=== PATIENT | female | born 1935 | race Caucasian/White ===

== ENCOUNTER → 2016-06-15 | Outpatient (CLI) | payer MEDICARE, OTHER ==
--- NOTE | 2016-06-15 11:40 | MM ---
Reason for exam: history of breast cancer, mastectomy. Last mammogram was performed 6 months ago. History: Patient is postmenopausal, has history of ovarian cancer at age 77, and has history of breast cancer at age 65. Mastectomy of the left breast, July 07, 2010. Malignant left mammotome panel of the left breast, June 25, 2010. Excisional biopsy of the left breast, August 26, 1999. Malignant stereotactic core biopsy of the left breast, August 08, 1999. Lumpectomy of the left breast, 1999. Radiation therapy of the left breast, 1999. Cyst aspiration of the left breast. Cyst aspiration of the right breast. Took estrogen for 20 years beginning at age 43. Physical Findings: Nurse did not find any significant physical abnormalities on exam. MG 3D Diag Mammo W/Cad RT CC and MLO view(s) were taken of the right breast. Prior study comparison: December 13, 2015, right breast MG 3d diag mammo w/cad RT. June 13, 2015, right breast MG 3d diag mammo w/cad RT. There are scattered fibroglandular densities. Finding: There are stable grouped/clustered calcifications in the right breast. These results were verbally communicated with the patient and result sheet given to the patient on 06/15/16. ASSESSMENT: Probably benign, BI-RAD 3 RECOMMENDATION: Follow-up diagnostic mammogram of the right breast in 6 months.
== END | disposition home or self-care (01) ==
LOC: RADMAMWWP 10:51
PROVIDERS: ATTEND Internal Medicine Hematology & Oncology
DX: Z08 Encounter for follow-up examination after completed treatment for malignant neoplasm (principal); Z85.3 Personal history of malignant neoplasm of breast
CPT/HCPCS: G0206; G0279

== ENCOUNTER → 2016-08-19 | Outpatient (CLI) | payer MEDICARE, OTHER ==
--- NOTE | 2016-08-19 11:34 | XR ---
EXAMINATION TYPE: XR chest 2V DATE OF EXAM: 08/19/2016 11:24 AM COMPARISON: NONE HISTORY: Shortness of breath TECHNIQUE: Frontal and lateral views of the chest are obtained. FINDINGS: Scattered senescent parenchymal changes noted. Hyperinflation compatible with COPD. No evidence for infiltrate. No evidence for atelectasis. Heart size is stable. Mediastinal structures are stable and grossly unremarkable. No evidence for hilar prominence. Degenerative changes dorsal spine. IMPRESSION: 1. No evidence for acute pulmonary disease.
== END | disposition home or self-care (01) ==
LOC: RADXRMAIN 11:03
PROVIDERS: ATTEND Internal Medicine
DX: R05 Cough (principal)
CPT/HCPCS: 71020

== ENCOUNTER → 2016-09-01 | Outpatient (CLI) | payer MEDICARE, OTHER ==
[2016-09-01 12:06] LABS: Blood Urea Nitrogen 14 mg/dL (7-17); Non-African American GFR(MDRD) 57 (>60 ml/min/1.73 sqM)
--- NOTE | 2016-09-01 13:32 | CT ---
EXAMINATION TYPE: CT abdomen pelvis w con DATE OF EXAM: 09/01/2016 12:49 PM COMPARISON: 08/19/2015 and 02/05/2014 HISTORY: 80-year-old female follow up of ovarian/breast cancer TECHNIQUE: Contiguous axial scanning of the abdomen and pelvis following administration of 100 ml Omn ipaque 300 IV contrast. Delayed images through the kidneys and coronal/sagittal reconstructions perf ormed. CT DLP: 1012.8 mGycm Automated exposure control for dose reduction was used. FINDINGS: Heart is normal size without pericardial effusion. Some strandy atelectasis or scarring at the lung b ases without pleural effusion. No focal liver lesion. Portal venous system is patent. Mild prominence of the bile duct is unchanged measuring up to 1 cm likely on the basis of postcholecystectomy status. Adrenal glands and kidneys within normal limits. Spleen with a couple eggshell calcifications, one at the splenic hilum measuring 1.2 cm are unchanged. Pancreas mildly atrophic but otherwise unremarkabl e. Some prominent but nonenlarged retroperitoneal lymph nodes measure up to 5 mm and are stable. A more prominent 7 mm lymph node overlying the left psoas major, axial image 46 is unchanged from 2014. No mesenteric or retroperitoneal lymphadenopathy. No dilated small bowel, free fluid, or free air. Oral contrast has progressed to the rectum. No pericolonic inflammatory change. Bladder is partially distended. Uterus and ovaries surgically absent. There is a small 1.2 cm area of soft tissue nodularity along the left lateral wall of the mid sigmoid colon, axial image 32 which is indeterminate and could possibly represent fold redundancy. Some meliton tional nodular thickening in the right adnexa measuring 1.7 cm that appears to be increased from prio r exams, axial image 69. Otherwise, no pelvic lymphadenopathy or abnormal fluid collection seen. Bones: Degenerative changes mid to lower lumbar spine. Severe hypertrophic facet arthropathy L3-L4 wi th grade 2 anterolisthesis. No osseous destructive process. 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 IMPRESSION: 1. STATUS POST HYSTERECTOMY AND BILATERAL SALPINGO-OOPHORECTOMY. 2. THERE ARE 2 AREAS OF NODULAR THICKENING, ONE ALONG THE LEFT LATERAL SURFACE OF THE MID SIGMOID AND ONE WITHIN THE RIGHT ADNEXA THAT APPEAR MORE PRONOUNCED FROM PRIOR EXAMS. SHORT INTERVAL FOLLOW-UP R ECOMMENDED TO EXCLUDE EARLY PERITONEAL/SEROSAL RECURRENCE. 3. 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 4. SOME SCATTERED BORDERLINE ENLARGED RETROPERITONEAL LYMPH NODES ARE STABLE BACK TO 2014 COMPATIBLE WITH A BENIGN ETIOLOGY.
== END | disposition home or self-care (01) ==
LOC: RADCTMAIN 11:26
PROVIDERS: ATTEND Internal Medicine Hematology & Oncology
DX: C56.9 Malignant neoplasm of unspecified ovary (principal); K63.89 Other specified diseases of intestine; I72.8 Aneurysm of other specified arteries; C50.112 Malignant neoplasm of central portion of left female breast; R59.0 Localized enlarged lymph nodes; Z90.710 Acquired absence of both cervix and uterus; Z90.722 Acquired absence of ovaries, bilateral; Z91.041 Radiographic dye allergy status
CPT/HCPCS: 82565; 84520; 74177; 36415; Q9967

== ENCOUNTER → 2016-11-02 | Outpatient (CLI) | payer MEDICARE, OTHER | END | disposition home or self-care (01) | LOC: RADUSWWP 12:09 | PROVIDERS: ATTEND Dermatology | DX: I83.12 Varicose veins of left lower extremity with inflammation (principal); I73.9 Peripheral vascular disease, unspecified | CPT/HCPCS: 93922 ==

== ENCOUNTER → 2016-12-24 | Outpatient (CLI) | payer MEDICARE, OTHER ==
--- NOTE | 2016-12-24 10:39 | MM ---
Reason for exam: additional evaluation requested from prior study. Last mammogram was performed 6 months ago. History: Patient is postmenopausal, has history of ovarian cancer at age 77, and has history of breast cancer at age 65. Mastectomy of the left breast, July 07, 2010. Malignant left mammotome panel of the left breast, June 25, 2010. Excisional biopsy of the left breast, August 26, 1999. Malignant stereotactic core biopsy of the left breast, August 08, 1999. Lumpectomy of the left breast, 1999. Radiation therapy of the left breast, 1999. Cyst aspiration of the left breast. Cyst aspiration of the right breast. Took estrogen for 20 years beginning at age 43. Physical Findings: Nurse did not find any significant physical abnormalities on exam. MG 3D Diag Mammo W/Cad RT CC, MLO, and ML view(s) were taken of the right breast. Prior study comparison: June 15, 2016, right breast MG 3d diag mammo w/cad RT. December 13, 2015, right breast MG 3d diag mammo w/cad RT. The breast tissue is heterogeneously dense. This may lower the sensitivity of mammography. There is no discrete abnormality. No significant new findings when compared with previous films. These results were verbally communicated with the patient and result sheet given to the patient on 12/24/16. ASSESSMENT: Negative, BI-RAD 1 RECOMMENDATION: Follow-up diagnostic mammogram of the right breast in 1 year. Manage patient on a clinical basis.
== END | disposition home or self-care (01) ==
LOC: RADMAMWWP 09:39
PROVIDERS: ATTEND Internal Medicine Hematology & Oncology
DX: Z08 Encounter for follow-up examination after completed treatment for malignant neoplasm (principal); Z85.3 Personal history of malignant neoplasm of breast
CPT/HCPCS: G0206; G0279

== ENCOUNTER → 2017-09-06 | Outpatient (CLI) | payer MEDICARE, OTHER ==
--- NOTE | 2017-09-06 15:56 | CT ---
EXAMINATION TYPE: CT abdomen pelvis w con DATE OF EXAM: 09/06/2017 HISTORY: Pelvic pain with history of ovarian cancer CT DLP: 1050.6mGycm Automated Exposure Control for Dose Reduction was Utilized. CONTRAST: CT scan of the abdomen and pelvis is performed with IV Contrast, patient injected with 100 mL of Isov ue 300. COMPARISON: 09/01/2016 FINDINGS: LUNG BASES: Increase in degree of subpleural reticulation in comparison to the prior exam within the lungs. No new focal nodule seen within the lung bases. Left sided mastectomy has been performed. LIVER/GB: Minimal intrahepatic biliary ductal dilatation and stable extrahepatic biliary ductal dilat ation are similar to the prior and likely postsurgical as there is postcholecystectomy. No focal live r lesion is seen. PANCREAS: No significant abnormality is seen. No ductal dilatation. 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 Dystrophic calcification of the splenic parenchyma is again noted. ADRENALS: No significant abnormality is seen. KIDNEYS: The kidneys enhance and excrete symmetrically without hydronephrosis. BOWEL: As described in the uterus/adnexa section there is a focal area of thickening of the sigmoid c olon on series 3 image 69 with surrounding adenopathy concerning for neoplasm. Contrast has not progr essed throughout the colon, somewhat limiting evaluation. Moderate amount of colonic stool is also se en also limiting evaluation. No small bowel dilatation is noted or large bowel dilatation. UTERUS/ADNEXA: Appearing to be within the mesial rectal fascia there is a complex heterogenous, predo minantly isoattenuated to adjacent musculature mass measuring 3.4 x 3.0 cm abutting the distal sigmoi d colon. This is concerning for a peritoneal implant given the patient's history of ovarian cancer or potentially exophytic sigmoid colonic mass. Additionally within the sigmoid colon there is an area o f focal wall thickening with surrounding adenopathy. This is concerning for underlying mass on series 3 image 69 with adenopathy on series 3 image 65 measuring 1.2 cm and 6 mm. Right adnexal mass may represent a residual right ovary is present. Correlate with surgical history. This is seen in series 3 image 77 abutting loops of small bowel measuring 1.9 x 2.2 cm. LYMPH NODES: Adenopathy as described in the uterus/adnexa section within the pelvis. No abdominal carlos nopathy. Nonenlarged periaortic lymph nodes are noted OSSEOUS STRUCTURES: There is a grade 2 anterolisthesis of L4 on L5. Multilevel moderate degenerative changes of the thoracic spine as visualized are noted and of the lumbosacral spine. IMPRESSION: 1. Multifocal findings within the distal and mid sigmoid colon with surrounding adenopathy. Findings are concerning for potential multifocal colon carcinoma or peritoneal/serosal implants and recurrence of the patient's known ovarian carcinoma. Initially colonoscopy is recommended with further workup c onsidering results. 2. Right adnexal mass that may represent the medial ovary. Correlate with surgical history. If right ovary is surgically absent additional area mesenteric/peritoneal implant would be considered.
== END | disposition home or self-care (01) ==
LOC: RADCTMAIN 08-31 11:49
PROVIDERS: ATTEND Internal Medicine Hematology & Oncology
DX: C56.9 Malignant neoplasm of unspecified ovary (principal); R59.0 Localized enlarged lymph nodes; N85.8 Other specified noninflammatory disorders of uterus; Z91.048 Other nonmedicinal substance allergy status
CPT/HCPCS: 82565; 84520; 74177; 36415; Q9967

== ENCOUNTER → 2017-12-27 | Outpatient (CLI) | payer MEDICARE, OTHER ==
--- NOTE | 2017-12-27 10:59 | MM ---
Reason for exam: additional evaluation requested from prior study. Last mammogram was performed 1 year ago. History: Patient is postmenopausal, has history of ovarian cancer at age 77, and has history of breast cancer at age 65. Mastectomy of the left breast, July 07, 2010. Malignant left mammotome panel of the left breast, June 25, 2010. Excisional biopsy of the left breast, August 26, 1999. Malignant stereotactic core biopsy of the left breast, August 08, 1999. Lumpectomy of the left breast, 1999. Radiation therapy of the left breast, 1999. Cyst aspiration of the left breast. Cyst aspiration of the right breast. Took estrogen for 20 years beginning at age 43. Physical Findings: Nurse did not find any significant physical abnormalities on exam. MG 3D Diag Mammo W/Cad RT CC and MLO view(s) were taken of the right breast. Prior study comparison: December 24, 2016, right breast MG 3d diag mammo w/cad RT. June 15, 2016, right breast MG 3d diag mammo w/cad RT. The breast tissue is heterogeneously dense. This may lower the sensitivity of mammography. There is no discrete abnormality. No significant new findings when compared with previous films. These results were verbally communicated with the patient and result sheet given to the patient on 12/27/17. ASSESSMENT: Negative, BI-RAD 1 RECOMMENDATION: Routine screening mammogram of the right breast in 1 year.
== END | disposition home or self-care (01) ==
LOC: RADMAMWWP 09:00
PROVIDERS: ATTEND Internal Medicine Hematology & Oncology
DX: R92.8 Other abnormal and inconclusive findings on diagnostic imaging of breast (principal); Z85.3 Personal history of malignant neoplasm of breast
CPT/HCPCS: 77065; G0279; 77061

== ENCOUNTER → 2018-01-01 | Outpatient (CLI) | payer MEDICARE, OTHER ==
--- NOTE | 2018-01-03 18:22 | PE ---
EXAMINATION TYPE: PET CT fusion skull to thigh DATE OF EXAM: 01/01/2018 CLINICAL HISTORY: 82-year-old female with history of ovarian cancer diagnosed in 2013. Treated with s urgery and chemotherapy in 2013. Also, remote history of breast cancer in 2001. TECHNIQUE: Following the intravenous administration of 12.14 mCi of F-18 FDG, whole body images are performed from the skull base to the midthigh. Images are reviewed on the computer in the coronal, axial, and sagittal planes. Reconstructed rotating images are created on independent workstation and reviewed on the computer. A localization and attenuation correction CT is performed in conjunction with the PET scan. Glucose level: 100 mg/dL CTDI: 4.57 mGy DLP: 406.7 mGy-cm COMPARISON: CT abdomen pelvis 09/16/2017 FINDINGS: PET: Physiologic FDG uptake within the neck. Physiologic FDG uptake within the chest. Small focal area of ozkh-an-vpigjdzb uptake at the mid hepatic dome, and axis to be 3.[address] co rrelate. Second area of focal borderline intense uptake inferior left liver lobe, max SUV 5.5. No alana ar CT correlate. - Pericolonic nodularity along the lower descending colon, axial image 177, moderate uptake, max SUV 4.3. - Small left common iliac chain lymph node measuring 8 mm, axial image 25 with mild uptake, max SUV 2 .3. - Left paramedian upper pelvic peritoneal deposit, axial image 191 measures 1.9 cm versus 1.4 cm prev iously and shows very intense uptake, maximal SUV 11.3. - Adjacent large left external iliac chain soft tissue measures 2.9 cm along the proximal sigmoid, ma x SUV 15.0. - Small anterior midline upper pelvic peritoneal deposit measures 1.7 cm versus 9 mm, previously with moderate uptake, max SUV 4.6. - A small right paramedian rectus sheath abdominal wall implant measures 1 cm with borderline moderat e uptake, max SUV 3.5. - A couple additional small serosal peritoneal implants measuring up to 1 cm are present more inferio rly in the pelvis is, axial image 199 and 200 with increased uptake. - Right adnexal soft tissue measures 2.6 cm versus 2.2 cm, previously with very intense uptake, max S UV 18.8. - Posterior left pelvic soft tissue measures 2.5 cm versus 3.4 cm, previously with intense uptake, ma x SUV 9.5. ATTENUATION CORRECTION CT: No cervical lymphadenopathy. Visualized paranasal sinuses are clear. Patient status post left mastectomy. Heart borderline enlarged without pericardial effusion. No thora cic lymphadenopathy by CT size criteria. Scattered areas of atelectasis or scarring in the lungs with a mild centrilobular emphysema. No consolidation or pleural effusion. Cholecystectomy clips. No dilated small bowel, free fluid, or free air. Moderate stool burden. Possib le small peripherally calcified splenic artery aneurysms measuring up to 1.2 cm. No abnormal fluid collection in the pelvis. Bladder collapsed. Uterus surgically absent. Bones: Degenerative changes lower lumbar spine. Endplate spondylosis mid to lower thoracic spine. No osseous destructive process. Grade 2 anterolisthesis at L4-L5. IMPRESSION: 1. Findings compatible with disease recurrence with peritoneal and serosal deposits within the lower abdomen and pelvis, small right paramedian rectus sheath abdominal wall implant, and 2 foci of metast atic disease to the liver versus hepatic serosal implants. Largest implant is on the left side of the pelvis along the mid sigmoid. Many of the implants have increased in size from 09/06/2017. 2. Status post hysterectomy and bilateral salpingo-oophorectomy as well as status post left mastectom y.
== END | disposition home or self-care (01) ==
LOC: RADPETMAIN 07:22
PROVIDERS: ATTEND Internal Medicine Hematology & Oncology
DX: R93.5 Abnormal findings on diagnostic imaging of other abdominal regions, including retroperitoneum (principal); C50.112 Malignant neoplasm of central portion of left female breast; Z90.12 Acquired absence of left breast and nipple; Z90.710 Acquired absence of both cervix and uterus
CPT/HCPCS: 78815; A9552

== ENCOUNTER 2018-01-04 09:18 | Day surgery (SDC) | payer MEDICARE, OTHER ==
[2017-12-31 12:40] VITALS: BMI 27.6
[~2018-01-04 09:18] MED LIST: DEXAMETHASONE SOD PHOSPHATE 10 MG/ML 1 ML VIAL IV ONE; LACTATED RINGERS 1,000 ML IV SCH; LIDOCAINE 1% 20 ML VIAL (10MG/ML) FOR IV START INTRADERMA PRN; ONDANSETRON 4 MG/2 ML VIAL IVP ONE; Pre Op ABX Message 1 EACH MISC MISCELLANE ONE; fentaNYL (PF) 50 MCG/ML 2 ML AMP IVP PRN
--- NOTE | 2018-01-04 09:42 | P.GSHP ---
History of Present Illness H&P Date: 01/04/18 Chief Complaint: Ovarian cancer 82-year-old female known to our service. Recently diagnosed with recurrent ovarian cancer. The patient has evidence of colonic involvement with partial colonic obstruction related to the serosal implants. Patient here today for Port-A-Cath placement. Patient also has a history of breast cancer. Past Medical History Past Medical History: Cancer, GERD/Reflux, Hypertension, Myocardial Infarction ( OR) Additional Past Medical History / Comment(s): MENIERE'S DISEASE. OVARAIN CANCER Last Myocardial Infarction Date:: UNKNOWN History of Any Multi-Drug Resistant Organisms: None Reported Past Surgical History: Breast Surgery, Hysterectomy Additional Past Surgical History / Comment(s): LUMPECTOMY LT BREAST. PORT PLACED. MASECTOMY LT BREAST. OVARAIN CANCER SX. COLONOSCOPY Past Anesthesia/Blood Transfusion Reactions: No Reported Reaction Smoking Status: Never smoker - Past Family History Mother Family Medical History: No Reported History Medications and Allergies Home Medications Medication Instructions Recorded Confirmed Type Aspirin [Adult Low Dose Aspirin EC] 81 mg PO DAILY 12/31/17 12/31/17 History Calcium Carb-Mag Carb-Folic 1 each PO AC-BID 12/31/17 12/31/17 History [Magnebind 400 Rx] Calcium Carbonate [Calcium] 600 mg PO DAILY 12/31/17 12/31/17 History Losartan [Cozaar] 50 mg PO DAILY 12/31/17 12/31/17 History Meclizine [Antivert] 25 mg PO BID 12/31/17 12/31/17 History Metoprolol Succinate [Toprol XL] 25 mg PO TID 12/31/17 12/31/17 History Montelukast [Singulair] 10 mg PO DAILY 12/31/17 12/31/17 History Pantoprazole Sodium [Protonix] 40 mg PO DAILY 12/31/17 12/31/17 History Venlafaxine HCl ER [Effexor XR] 75 mg PO DAILY 12/31/17 12/31/17 History amLODIPine [Norvasc] 5 mg PO DAILY 12/31/17 12/31/17 History clonazePAM [Clonazepam] 0.5 mg PO HS 12/31/17 12/31/17 History Allergies Allergy/AdvReac Type Severity Reaction Status Date / Time codeine Allergy Vomiting Verified 12/31/17 12:31 iodine Allergy Rash/Hives Verified 12/31/17 12:31 Sulfa (Sulfonamide Allergy Rash/Hives Verified 12/31/17 12:31 Antibiotics) Surgical - Exam Physical exam: General: Well-developed, well-nourished HEENT: Normocephalic, sclerae nonicteric Abdomen: Nontender, nondistended Extremities: No edema Neuro: Alert and oriented Assessment and Plan (1) Ovarian cancer Narrative/Plan: Will proceed with Port-A-Cath placement today. Risks of bleeding, infection, DVT , pneumothorax, catheter malfunction, anesthesia related complications were discussed. The patient understands and wishes to proceed. Current Visit: Yes Status: Acute Code(s): C56.9 - MALIGNANT NEOPLASM OF UNSPECIFIED OVARY SNOMED Code(s): 321433648
[2018-01-04 09:48] VITALS: RESP 16; TEMP 97.5
[2018-01-04] MEDS ORDERED: HEPARIN SODIUM,PORCINE 5,000 UNIT/ML 1 ML VIAL SQ ONE (12:03)
[2018-01-04] MEDS ORDERED: ceFAZolin IN SWFI 2 GM/20 ML SYRINGE IVP ONE (12:15)
[2018-01-04] MEDS ORDERED: fentaNYL (PF) 50 MCG/ML 2 ML AMP ONE (12:26)
[2018-01-04] MEDS ORDERED: PROPOFOL 10 MG/ML 20 ML VIAL IV ONE (12:26)
[2018-01-04] MEDS ORDERED: LIDOCAINE 1% INJ 10MG/ML (20 ML MDV) SQ ONE ×2 (12:46→13:03)
[2018-01-04] MEDS ORDERED: HEPARIN SODIUM,PORCINE 100 UNIT/ML 5 ML VIAL IV ONE (12:47)
[2018-01-04] MEDS ORDERED: NALOXONE 0.4 MG/ML 1 ML VIAL IV PRN (13:08)
--- NOTE | 2018-01-04 13:09 | P.OP ---
Date of Procedure: 01/04/18 Procedure(s) Performed: PREOPERATIVE DIAGNOSIS: Ovarian cancer POSTOPERATIVE DIAGNOSIS: Same PROCEDURE: Port-A-Cath placement SURGEON: Ludmila EBL: Minimal ANESTHESIA: Sedation COMPLICATIONS: None OPERATIVE PROCEDURE: Patient was brought and placed on the operative table in the supine position. The patient was sedated per anesthesia that time. The chest and neck were prepped and draped in usual sterile fashion. The ultrasound probe was used to identify the location of the right internal jugular vein. The skin was localized with lidocaine. The Seldinger needle was advanced into the IJ under ultrasound guidance. The wire was advanced through the needle under fluoroscopic guidance into the superior vena cava. A port pocket was created in the right infraclavicular location. The catheter was tunneled from the wire entrance site to the port pocket. The port was then connected to the catheter. The dilator introducer was threaded over the guidewire. The guidewire and dilator were then removed. The catheter was advanced through the introducer and introducer was then removed. The tip was seen to be in the right atrial junction. Port was flushed with both saline and a Hep-Lock solution. There was good flow both in and out of the port. The port was sutured in underlying tissues using 3-0 silk sutures. The subcutaneous tissues were reapproximated using 3-0 Vicryl sutures and the skin at both locations using 4-0 Monocryl sutures. Steri-Strips and sterile dressings then applied. DISPOSITION: Stable to recovery room
--- NOTE | 2018-01-04 13:35 | XR ---
EXAMINATION TYPE: XR chest 1V confirm line [facility] DATE OF EXAM: 01/04/2018 COMPARISON: None INDICATION: Line placement TECHNIQUE: Single frontal view of the chest is obtained. FINDINGS: The heart size is normal. The pulmonary vasculature is normal. Minimal infiltrate may be partially silhouetting the left diaphragm. Catheter is been placed on the right with the tip in the distal superior vena cava region. No pneumot horax is evident. IMPRESSION: 1. No pneumothorax post line placement, tip is in the distal superior vena cava region. 2. Mild subsegmental atelectasis or infiltrate is at the left base.
--- NOTE | 2018-01-04 13:47 | FL ---
Fluoroscopy INDICATION: Pain, catheter placement FINDINGS: Fluoroscopy time: 3 seconds. Images obtained: 1. IMPRESSIONS: 1. Documentation of fluoroscopy.
[2018-01-04 14:06] VITALS: BP 147/69; PULSE 61
== END 2018-01-04 14:22 | disposition home or self-care (01) ==
LOC: OR 09:18
PROVIDERS: ATTEND Surgery
DX: C56.9 Malignant neoplasm of unspecified ovary (principal); K21.9 Gastro-esophageal reflux disease without esophagitis; I10 Essential (primary) hypertension; I25.2 Old myocardial infarction; H81.09 Meniere's disease, unspecified ear; Z88.5 Allergy status to narcotic agent; Z88.2 Allergy status to sulfonamides; Z91.048 Other nonmedicinal substance allergy status; Z79.82 Long term (current) use of aspirin; Z79.899 Other long term (current) drug therapy; Z85.3 Personal history of malignant neoplasm of breast; Z90.710 Acquired absence of both cervix and uterus; Z90.12 Acquired absence of left breast and nipple
CPT/HCPCS: 36561; 77001; C1788; J1644; J1642; J1100; J0690; J2405; J2001; J3010; J2704

== ENCOUNTER → 2018-01-18 | Outpatient (CLI) | payer MEDICARE, OTHER ==
--- NOTE | 2018-01-18 16:43 | XR ---
EXAMINATION TYPE: XR chest 2V DATE OF EXAM: 01/18/2018 COMPARISON: Prior chest x-ray 01/04/2018 HISTORY: Breast carcinoma TECHNIQUE: Frontal and lateral views of the chest are obtained. FINDINGS: Right-sided Port-A-Cath via the internal jugular approach is present with the distal tip o f the catheter overlying superior vena cava. There is no evident pneumothorax or pleural effusion. Pa tient is post left mastectomy. Mediastinal silhouette, pulmonary vascularity and leonardo are within norm al limits. No evident airspace disease. There is a spinal curvature, underlying degenerative disc lucie nges in the visualized spine. IMPRESSION: No acute cardiopulmonary process.
== END | disposition home or self-care (01) ==
LOC: RADXRMAIN 14:14
PROVIDERS: ATTEND Internal Medicine Hematology & Oncology
DX: C50.112 Malignant neoplasm of central portion of left female breast (principal); C56.9 Malignant neoplasm of unspecified ovary; E78.2 Mixed hyperlipidemia; I10 Essential (primary) hypertension
CPT/HCPCS: 71046

== ENCOUNTER 2018-03-01 10:53 | Day surgery (SDC) | payer MEDICARE, OTHER ==
[2018-02-21 15:02] VITALS: BMI 26.9
[~2018-03-01 10:53] MED LIST changes: -DEXAMETHASONE SOD PHOSPHATE 10 MG/ML 1 ML VIAL IV ONE; +FAMOTIDINE 20 MG/2 ML VIAL IV ONE; -LACTATED RINGERS 1,000 ML IV SCH; -LIDOCAINE 1% 20 ML VIAL (10MG/ML) FOR IV START INTRADERMA PRN; -ONDANSETRON 4 MG/2 ML VIAL IVP ONE; -Pre Op ABX Message 1 EACH MISC MISCELLANE ONE; +diphenhydrAMINE 50 MG/ML 1 ML VIAL IVP ONE; -fentaNYL (PF) 50 MCG/ML 2 ML AMP IVP PRN; +methylPREDNISolone SOD SUCCI 125 MG/2 ML VIAL IV ONE
[2018-03-01] MEDS ORDERED: FAMOTIDINE 20 MG/2 ML VIAL ONE (11:17)
[2018-03-01] MEDS ORDERED: methylPREDNISolone SOD SUCCI 125 MG/2 ML VIAL ONE (11:17)
[2018-03-01] MEDS ORDERED: diphenhydrAMINE 50 MG/ML 1 ML VIAL ONE (11:17)
[2018-03-01 11:47] VITALS: TEMP 97.8
[2018-03-01 13:06] VITALS: BP 132/76; PULSE 73; RESP 16
--- NOTE | 2018-03-01 16:04 | IR ---
Port-A-Cath gram HISTORY: Malfunctioning Port-A-Cath Port-A-Cath accessed by the radiology nurse. Gentle hand injection of contrast performed under real-t collin fluoroscopy. 276 images obtained. 0.4 minutes fluoroscopy time. Following the procedure catheter was flushed with heparinized saline. Patient remained in stable cond ition, is discharged without complication. The port is patent. Catheter shows no fracture. Contrast injection there is irregularity noted along the distal aspect of the catheter. Contrast spil ls into the superior vena cava at the level of the superior vena cava rather than within the right at rium. IMPRESSION: Fibrin sheath along the distal aspect of the catheter measuring approximately 5 to 6 cm. Catheter is patent. No evident leak.
== END 2018-03-01 13:07 | disposition home or self-care (01) ==
LOC: CATHCVL 10:53
PROVIDERS: ATTEND Radiology Diagnostic Radiology
DX: T82.514A Breakdown (mechanical) of infusion catheter, initial encounter (principal); Z88.5 Allergy status to narcotic agent; Z88.2 Allergy status to sulfonamides; Z91.09 Other allergy status, other than to drugs and biological substances
CPT/HCPCS: 36598; J1200; J2930

== ENCOUNTER → 2018-03-02 | Outpatient (CLI) | payer MEDICARE, OTHER ==
--- NOTE | 2018-03-02 12:42 | CT ---
EXAMINATION TYPE: CT ChestAbdPelvis w con DATE OF EXAM: 03/02/2018 COMPARISON: Prior CT 09/06/2017 HISTORY: Breast and Ovarian Cancer CT DLP: 1403 mGycm Automated exposure control for dose reduction was used. CONTRAST: CT scan of the chest, abdomen and pelvis is performed with Oral Contrast and with IV Contrast, patien t injected with 100 ml mL of Isovue 300. FINDINGS: LUNGS: The lungs are stable, there is no concerning parenchymal mass or nodule identified. There is no pleural effusion or pneumothorax seen. The tracheobronchial tree is patent. MEDIASTINUM: There are no greater than 1 cm hilar or mediastinal lymph nodes. No pericardial effusi on is seen. AORTA: No significant abnormality is seen. OTHER: Patient is post left mastectomy. Port is present in the right pectoral region, distal tip the catheter courses to the level of the cavoatrial junction. LIVER/GB: Patient is post cholecystectomy, there are dilated intra and extrahepatic biliary ducts lik beto due to postcholecystectomy change. PANCREAS: No significant abnormality is seen. SPLEEN: Stable. ADRENALS: No significant abnormality is seen. KIDNEYS: No significant abnormality is seen. REPRODUCTIVE ORGANS: No gross abnormality seen. BOWEL: No significant abnormality is seen. FREE AIR: No Free Air visible. ASCITES: None seen. RETROPERITONEAL ADENOPATHY: No retroperitoneal adenopathy is seen. LYMPH NODES: Mesenteric nodes within the pelvis have grown slightly in the interval, towards the left lesion measures 17 x 19 mm where on prior measured approximately 16 x 14 mm. Small lesion towards th e midline measures approximately 18 x 9 mm and measured on prior approximately 11 x 8 mm. Soft tissue lesion associated with the sigmoid colon is again seen and may be adherent to the serosal surface. A t the level of the left hemipelvis adjacent to the rectum soft tissue mass measures 2.4 x 2.3 cm and on prior measured approximately 3 x 3.4 cm. Lesion at the surgical bed just posterior to the bladder to the right of midline measures approximately 2.9 x 1.8 cm where prior measurement approximately 1.9 x 2.2 cm. URINARY BLADDER: No significant abnormality is seen. OSSEOUS STRUCTURES: Stable. IMPRESSION: Findings suggest a mixed treatment response.
== END | disposition home or self-care (01) ==
LOC: RADCTMAIN 09:29
PROVIDERS: ATTEND Internal Medicine Hematology & Oncology
DX: Z03.89 Encounter for observation for other suspected diseases and conditions ruled out (principal); C50.112 Malignant neoplasm of central portion of left female breast; C56.9 Malignant neoplasm of unspecified ovary
CPT/HCPCS: 71260; 74177; Q9967

== ENCOUNTER → 2018-04-11 | Outpatient (CLI) | payer MEDICARE, OTHER ==
--- NOTE | 2018-04-11 16:18 | XR ---
EXAMINATION TYPE: XR chest 2V DATE OF EXAM: 04/11/2018 COMPARISON: 01/18/2018 INDICATION: Short of breath TECHNIQUE: Frontal and lateral views of the chest are obtained. FINDINGS: The heart size is normal. The pulmonary vasculature is normal. The lungs are clear. Port is present on the right with the tip in the distal superior vena cava gunnar on. Note is made of some degenerative disc changes through the thoracic spine. IMPRESSION: 1. No acute pulmonary process.
== END | disposition home or self-care (01) ==
LOC: RADXRMAIN 14:27
PROVIDERS: ATTEND Internal Medicine Interventional Cardiology
DX: R06.09 Other forms of dyspnea (principal)
CPT/HCPCS: 71046

== ENCOUNTER → 2018-06-16 | Outpatient (CLI) | payer MEDICARE, OTHER ==
--- NOTE | 2018-06-16 13:58 | CT ---
EXAMINATION TYPE: CT abdomen pelvis w con DATE OF EXAM: 06/16/2018 HISTORY: Follow up ovarian cancer. History of left breast cancer with mastectomy. CT DLP: 643.5mGycm Automated Exposure Control for Dose Reduction was Utilized. CONTRAST: CT scan of the abdomen and pelvis is performed with IV Contrast, patient injected with 60 mL of Isovu e 300. COMPARISON: 03/02/2018 FINDINGS: LUNG BASES: Peripheral predominant reticular opacity representing early fibrotic change. No honeycomb ing. LIVER/GB: Minimal intrahepatic biliary ductal dilatation is seen. Patient is status post cholecystect meme. No new hepatic lesions are identified or subserosal implants. No liver parenchymal invasion is s een. PANCREAS: No significant abnormality is seen. 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 ADRENALS: No significant abnormality is seen. KIDNEYS: No significant abnormality is seen. BOWEL: Moderate amount retained colonic stool is seen. No dilated large or small bowel. Appendix is w ithin normal limits. UTERUS/ADNEXA: Surgically absent LYMPH NODES: Left lower quadrant lymph nodes currently measure 1.2 x 1.5 and 1.1 x 0.9 cm as previous ly measured 1.6 x 1.5 cm and 8 mm, overall similar in measurement given differences in slice selectio n. The left pelvic wall adenopathy intimately associated with the sigmoid colon measures 1 cm in grea test thickness, better defined on the prior as phase of contrast was more optimal on this exam. Overa ll this mass appears slightly smaller. Smaller mesenteric lymph node on image 67 currently measures 1 .1 cm and previously measured 1.7 cm, improved. Just posterior to the urinary bladder left ureterovesicular junction the surgical bed mass measures 1 .8 x 1.8 cm and previously measured 2.2 x 2.2 cm. Other scattered smaller lymph nodes have slightly improved. OSSEOUS STRUCTURES: Again stable grade I anterolisthesis of L4 on L5 with rudimentary disc at L5-S1 a nd mild multilevel degenerative changes. IMPRESSION: Slight improvement in the sigmoid colon serosal and/or peritoneal metastatic implant size and slight improvement overall in the pelvic adenopathy in comparison to exam of 03/01/2018. No new solid visceral metastasis.
== END | disposition home or self-care (01) ==
LOC: RADPROMAIN 10:42
PROVIDERS: ATTEND Internal Medicine Hematology & Oncology
DX: C56.9 Malignant neoplasm of unspecified ovary (principal); Z91.048 Other nonmedicinal substance allergy status
CPT/HCPCS: 82565; 84520; 74177; J1642; Q9967

== ENCOUNTER → 2018-09-27 | Outpatient (CLI) | payer MEDICARE, OTHER ==
--- NOTE | 2018-09-28 09:09 | CT ---
EXAMINATION TYPE: CT abdomen pelvis w con DATE OF EXAM: 09/27/2018 COMPARISON: 06/16/2018 INDICATION: Ovarian CA DLP: 667.8 mGycm, Automated exposure control for dose reduction was used. CONTRAST: 100 mL of Isovue 300. Study performed with Oral Contrast TECHNIQUE: Axial images were obtained from above the diaphragm to the pubic rami in the axial plane a t 5 mm thick sections. Reconstructed images are reviewed on the computer in the coronal plane. FINDINGS: Limited CT sections are obtained the lung bases. The lung bases are clear. There is a left breast p rosthesis. CT ABDOMEN: Liver: Normal Spleen: Normal Pancreas: Somewhat atrophic Adrenal glands: The adrenal glands are normal. Gallbladder: Urgently absent Kidneys: No masses are evident. No hydronephrosis is present. No cysts are present. Delayed images were obtained through the kidneys, which remain unremarkable. Aorta: No aneurysmal dilatation or fusiform prominence. Inferior vena cava: Normal. CT PELVIS: Loops of bowel within the abdomen and pelvis are normal. There are loops of bowel which are incom pletely distended or lack oral contrast limiting their evaluation. Appendix: Normal as visualized. Urinary bladder: Normal. Genitourinary structures: Uterus is absent. Ovaries are not evident. No suspicious fluid collections are evident. Old mesentery: There are couple of rounded densities within the mesentery which may communicate. Seri es 3 image 60. There is a transverse dimension of 1.2 cm and could be a mesenteric lymph node iliac c sukh lymph node measuring 1.1 cm may be present, series 3 image 60. This is compared to the previous examination. The iliac chain lymph node previously measured 1.0 cm. The bilobed structure previously measured 1.3 and 0.9 cm in transverse dimension. The larger area has diminished 0.8 cm smaller area has increased to 1.2 cm. Additional area within the posterior pelvic mesentery measures 1.6 cm. This is increased in size from comparison. A 0.8 cm bilobed structure is in the anterior pelvis is stable in size. Osseous structures: No suspicious lytic or sclerotic lesions. IMPRESSIONS: 1. Several mesenteric nodular densities and left iliac chain density suspicious for mesenteric iliac chain lymphadenopathy. The majority of these are stable in size. One has diminished from 1.3 cm to 0 .8 cm, series 3 image 60. Others have increased from 0.8 cm to 1.0 cm, series 3 image 60, or 0.8 cm t o 1.6 cm, series 3 image 65.
== END | disposition home or self-care (01) ==
LOC: RADCTMAIN 16:27
PROVIDERS: ATTEND Internal Medicine Hematology & Oncology
DX: C56.9 Malignant neoplasm of unspecified ovary (principal); I89.8 Other specified noninfective disorders of lymphatic vessels and lymph nodes
CPT/HCPCS: 74177; Q9967

== ENCOUNTER → 2019-01-18 | Outpatient (CLI) | payer MEDICARE, OTHER ==
--- NOTE | 2019-01-18 17:23 | CT ---
EXAMINATION TYPE: CT abdomen pelvis w con DATE OF EXAM: 01/18/2019 HISTORY: Patient had ovarian cancer and in for follow up. CT DLP: 647mGycm Automated Exposure Control for Dose Reduction was Utilized. CONTRAST: CT scan of the abdomen and pelvis is performed with IV Contrast, patient injected with 80 mL of Isovu e M300. COMPARISON: CT abdomen and pelvis September 27, 2018 and older CTs FINDINGS: LUNG BASES: Anterolateral left basilar linear scarring is redemonstrated. LIVER/GB: Cholecystectomy clips are again seen. PANCREAS: Mild generalized atrophy redemonstrated. SPLEEN: No significant abnormality is seen. ADRENALS: No significant abnormality is seen. KIDNEYS: No significant abnormality is seen. BOWEL: Oral contrast reaches the level of the left colon. There is fecal prominence in the transverse and left colon. There is no suspicious small or large bowel dilatation. UTERUS/ADNEXA: Uterus is surgically absent. There is enlarging right pelvic lesion measuring 2.0 x 1. 8 cm axial image 67. There is an enlarging central pelvic 2.2 x 1.8 cm lesion axial image 63. There i s enlarging anterior mesenteric lesion measuring 2.4 x 0.9 cm axial image 59. There is enlarging left mesenteric lesion axial image 59. Is new suspicious subcentimeter soft tissue focus right retroperit oneum adjacent to iliopsoas muscle axial image 50. There is no enlarging left pelvic peritoneal 2.9 x 2.0 cm positive axial image 69. LYMPH NODES: See uterus/adnexa section above. OSSEOUS STRUCTURES: Demineralization is present. Transitional-type vertebra at the lumbosacral juncti on. There is persistent spondylolisthesis sagittal image 55. Facet arthropathy lower lumbar levels. OTHER: No significant additional abnormality is seen. IMPRESSION: Progression of metastatic disease with enlarging and new lesions identified as detailed a sherif predominantly involving the lower abdomen and pelvis.
== END | disposition home or self-care (01) ==
LOC: RADPROMAIN 13:22
PROVIDERS: ATTEND Internal Medicine Hematology & Oncology
DX: Z03.89 Encounter for observation for other suspected diseases and conditions ruled out (principal); C56.9 Malignant neoplasm of unspecified ovary; N94.9 Unspecified condition associated with female genital organs and menstrual cycle; Z91.041 Radiographic dye allergy status
CPT/HCPCS: 82565; 84520; 74177; J1642; Q9967

== ENCOUNTER → 2019-01-26 | Outpatient (CLI) | payer MEDICARE, OTHER ==
--- NOTE | 2019-01-27 09:48 | MM ---
Reason for exam: additional evaluation requested from prior study. Last mammogram was performed 1 year and 1 month ago. History: Patient is postmenopausal, has history of ovarian cancer at age 77, and has history of breast cancer at age 65. Mastectomy of the left breast, July 07, 2010. Malignant left mammotome panel of the left breast, June 25, 2010. Excisional biopsy of the left breast, August 26, 1999. Malignant stereotactic core biopsy of the left breast, August 08, 1999. Lumpectomy of the left breast, 1999. Radiation therapy of the left breast, 1999. Cyst aspiration of the left breast. Cyst aspiration of the right breast. Took estrogen for 20 years beginning at age 43. Taking antineoplastic for 1 year beginning at age 82. Physical Findings: Nurse did not find any significant physical abnormalities on exam. MG 3D Diag Mammo W/Cad RT CC and MLO view(s) were taken of the right breast. Prior study comparison: December 27, 2017, right breast MG 3d diag mammo w/cad RT. December 24, 2016, right breast MG 3d diag mammo w/cad RT. The breast tissue is heterogeneously dense. This may lower the sensitivity of mammography. Benign appearing calcifications in the right breast. No suspicious abnormality. Right nipple inversion is chronic. These results were verbally communicated with the patient and result sheet given to the patient on 01/26/19. ASSESSMENT: Benign, BI-RAD 2 RECOMMENDATION: Routine screening mammogram of the right breast in 1 year.
== END | disposition home or self-care (01) ==
LOC: RADMAMWWP 15:13
PROVIDERS: ATTEND Internal Medicine Hematology & Oncology
DX: Z08 Encounter for follow-up examination after completed treatment for malignant neoplasm (principal); Z85.3 Personal history of malignant neoplasm of breast; Z90.12 Acquired absence of left breast and nipple
CPT/HCPCS: 77065; G0279; 77061

== ENCOUNTER → 2019-03-08 | Outpatient (CLI) | payer MEDICARE, OTHER ==
--- NOTE | 2019-03-10 12:09 | US ---
EXAMINATION TYPE: US venous doppler duplex LE DATE OF EXAM: 03/08/2019 4:44 PM COMPARISON: NONE CLINICAL HISTORY: M79.662,M79.661,R22.42,R22.41 PAIN SWELLING LOWER LIMB. Pt states leg pain and swel ling, on chemo for ovarian CA SIDE PERFORMED: Bilateral TECHNIQUE: The lower extremity deep venous system is examined utilizing real time linear array sonog lynda with graded compression, doppler sonography and color-flow sonography. VESSELS IMAGED: External Iliac Vein (EIV) Common Femoral Vein Deep Femoral Vein Greater Saphenous Vein * Femoral Vein Popliteal Vein Small Saphenous Vein * Proximal Calf Veins (* superficial vessels) Right Leg: Negative for DVT, Barrett's cyst right pop fossa= 5.8 x 1.8 x 3.7 cm Left Leg: Positive for DVT, beginning at CFV, Barrett's cyst left pop fossa= 5.8 x 2.5 x 4.0 cm Results called to Ella at Dr's office at time of exam IMPRESSION: 1. Left-sided DVT as discussed above. 2. Bilateral Barrett's cysts noted.
== END ==
LOC: RADUSWWP 16:23
PROVIDERS: ATTEND Internal Medicine Hematology & Oncology
DX: I82.412 Acute embolism and thrombosis of left femoral vein (principal); I82.432 Acute embolism and thrombosis of left popliteal vein; I82.492 Acute embolism and thrombosis of other specified deep vein of left lower extremity; M71.22 Synovial cyst of popliteal space [Baker], left knee; M71.21 Synovial cyst of popliteal space [Baker], right knee
CPT/HCPCS: 93970

== ENCOUNTER → 2019-06-02 | Outpatient (CLI) | payer MEDICARE, OTHER ==
--- NOTE | 2019-06-02 12:22 | CT ---
EXAMINATION TYPE: CT abdomen pelvis w con DATE OF EXAM: 06/02/2019 COMPARISON: 01/18/2019 HISTORY: Ovarian cancer CT DLP: 647.1 mGycm CONTRAST: CT scan of the abdomen and pelvis is performed with Oral Contrast and with IV Contrast, patient injec yasmine with 80 mL of Isovue 300. FINDINGS: LUNG BASES-: No visible nodule. No infiltrate. LIVER/GB: The gallbladder is surgically absent. No space occupying hepatic lesion. Biliary tree is of normal caliber. PANCREAS: No inflammation. No distinct mass. SPLEEN: No splenic enlargement. No lesion seen. ADRENALS: No nodule. No thickening. KIDNEYS/BLADDER: No hydronephrosis. No nephrolithiasis. No distinct renal mass. Urinary bladder g rossly unremarkable. BOWEL: Normal appendix. Normal bowel caliber. No inflammation. GENITAL ORGANS: Hysterectomy and oophorectomy changes. Central pelvic lesion is stable measuring 2.2 cm seen on image 66. Stable right hemipelvic lesion measuring 1.9 cm versus 1.8 cm. Nodule adjacent to the right iliopsoas is smaller in size and measures 3 mm versus 8 mm previously. Anterior mesenter ic nodularity is also stable at 2.5 x 0.9 cm versus 2.4 x 0.9 cm. Additional adjacent nodule measures 1.55 cm versus 1.6 cm. No new nodules seen. LYMPH NODES: No greater than 1cm abdominal or pelvic lymph nodes are appreciated. AORTA: No significant abnormality. OSSEOUS STRUCTURES: No significant abnormality is seen. OTHER: No significant additional abnormality is seen. IMPRESSION: 1. Stable lesions in noted within the small bowel mesentery and lower pelvic regions as discussed. No new nodules are identified.
== END | disposition home or self-care (01) ==
LOC: RADPROMAIN 10:02
PROVIDERS: ATTEND Internal Medicine Hematology & Oncology
DX: N94.89 Other specified conditions associated with female genital organs and menstrual cycle (principal); K63.9 Disease of intestine, unspecified; C56.9 Malignant neoplasm of unspecified ovary; Z88.3 Allergy status to other anti-infective agents; Z88.5 Allergy status to narcotic agent; Z88.2 Allergy status to sulfonamides
CPT/HCPCS: 82565; 84520; 74177; J1642; Q9967 ×2

== ENCOUNTER 2019-09-25 15:30 | Inpatient (IN) | payer MEDICARE, OTHER ==
--- NOTE | 2019-09-25 17:19 | ED ---
General Adult HPI - General Chief complaint: Shortness of Breath Stated complaint: SOB Time Seen by Provider: 09/25/19 15:44 Source: patient, RN notes reviewed Mode of arrival: wheelchair Limitations: no limitations - History of Present Illness Initial comments: 83 yo female with a past medical history of ovarian cancer last received chemo on September 11, Hypertension, [place], GERD presents for shortness of breath. Patient states this has been ongoing for about 3 days. Patient states that she does not have any chest pain with this. Patient does admit that exertion makes the shortness of breath worse. Patient is currently taking Xarelto as she does have history of DVT however has not had any problems when starting the blood thinner. Patient is a chemo patient with last chemotherapy being september 12. - Related Data Home Medications Medication Instructions Recorded Confirmed Aspirin [Adult Low Dose Aspirin EC] 81 mg PO DAILY 12/31/17 05/27/18 Calcium Carb-Mag Carb-Folic 400 mg PO AC-BID 12/31/17 05/27/18 [Magnebind 400 Rx] Calcium Carbonate [Calcium] 600 mg PO DAILY 12/31/17 05/27/18 Losartan [Cozaar] 50 mg PO DAILY 12/31/17 05/27/18 Meclizine [Antivert] 25 mg PO BID 12/31/17 05/27/18 Metoprolol Succinate [Toprol XL] 25 mg PO TID 12/31/17 05/27/18 Montelukast [Singulair] 10 mg PO DAILY 12/31/17 05/27/18 Pantoprazole Sodium [Protonix] 40 mg PO DAILY 12/31/17 05/27/18 Venlafaxine HCl ER [Effexor XR] 75 mg PO DAILY 12/31/17 05/27/18 amLODIPine [Norvasc] 5 mg PO DAILY 12/31/17 05/27/18 clonazePAM [Clonazepam] 0.5 mg PO HS 12/31/17 05/27/18 HYDROcodone/APAP 5-325MG [Hamer 1 tab PO Q4HR PRN 03/01/18 05/27/18 5-325] Niraparib Tosylate [Zejula] 200 mg PO DAILY 05/27/18 05/27/18 Prochlorperazine [Compazine] 10 mg PO BID 05/27/18 05/27/18 Allergies Allergy/AdvReac Type Severity Reaction Status Date / Time codeine Allergy Vomiting Verified 09/25/19 15:39 iodine Allergy Rash/Hives Verified 09/25/19 15:39 Sulfa (Sulfonamide Allergy Rash/Hives Verified 09/25/19 15:39 Antibiotics) Review of Systems ROS Statement: Those systems with pertinent positive or pertinent negative responses have been documented in the HPI. ROS Other: All systems not noted in ROS Statement are negative. Past Medical History Past Medical History: Cancer, GERD/Reflux, Hypertension, Myocardial Infarction ([place]) Additional Past Medical History / Comment(s): MENIERE'S DISEASE. OVARIAN CANCER, Port a cath rt chest wall currently receiving chemotherapy. current UTI [place] with CIPRO Last Myocardial Infarction Date:: UNKNOWN History of Any Multi-Drug Resistant Organisms: None Reported Past Surgical History: Breast Surgery, Hysterectomy Additional Past Surgical History / Comment(s): LUMPECTOMY LT BREAST. PORT PLACED RT CHEST. MASECTOMY LT BREAST. OVARIAN CANCER SX. COLONOSCOPY Past Anesthesia/Blood Transfusion Reactions: Motion Sickness Past Psychological History: Depression Smoking Status: Never smoker - Past Family History Mother Family Medical History: CVA/TIA General Exam Limitations: no limitations General appearance: alert, in no apparent distress Head exam: Present: atraumatic, normocephalic, normal inspection Eye exam: Present: normal appearance, PERRL, EOMI. Absent: scleral icterus, conjunctival injection, periorbital swelling ENT exam: Present: normal exam, mucous membranes moist Neck exam: Present: normal inspection, full ROM. Absent: tenderness, meningismus, lymphadenopathy Respiratory exam: Present: decreased breath sounds. Absent: respiratory distress, wheezes, rales, rhonchi, stridor Cardiovascular Exam: Present: regular rate, normal rhythm, normal heart sounds. Absent: systolic murmur, diastolic murmur, rubs, gallop, clicks GI/Abdominal exam: Present: soft, normal bowel sounds. Absent: distended, tenderness, guarding, rebound, rigid Course Vital Signs 09/25/19 15:35 Temperature 98.3 F Pulse Rate 77 Respiratory 18 Rate Blood Pressure 156/69 O2 Sat by Pulse 93 L Oximetry EKG Findings - EKG Comments: EKG Findings:: Normal sinus rhythm ventricular rate 89, NV interval 134, QTC 420 Medical Decision Making - Medical Decision Making HPI and physical exam as documented. Vitals are stable although patient is a 93% room air. EKG shows a normal sinus rhythm. No significant elevations noted. CBC CMP unremarkable. Troponin is within normal limits. However BNP is elevated 3600. His x-ray demonstrates pulmonary edema with small right pleural effusion consistent with acute heart failure. Patient does not have a history of this. Patient was started on Lasix and Nitropaste. Patient will be admitted for cardiology consultation. Dr. Sarabia will be consulted as well. This is patient's oncologist. - Lab Data Result diagrams: 09/25/19 18:45 09/25/19 18:45 Lab Results 09/25/19 09/25/19 09/25/19 Range/Units 18:45 18:45 18:45 WBC 7.1 (3.8-10.6) k/uL RBC 2.87 L (3.80-5.40) m/uL Hgb 9.1 L (11.4-16.0) gm/dL Hct 27.9 L (34.0-46.0) % MCV 97.2 (80.0-100.0) fL MCH 31.6 (25.0-35.0) pg MCHC 32.5 (31.0-37.0) g/dL RDW 17.5 H (11.5-15.5) % Plt Count 152 (150-450) k/uL Neutrophils % 66 % Lymphocytes % 18 % Monocytes % 11 % Eosinophils % 2 % Basophils % 1 % Neutrophils # 4.7 (1.3-7.7) k/uL Lymphocytes # 1.3 (1.0-4.8) k/uL Monocytes # 0.8 (0-1.0) k/uL Eosinophils # 0.1 (0-0.7) k/uL Basophils # 0.0 (0-0.2) k/uL Hypochromasia Slight Anisocytosis Slight Macrocytosis Slight PT 10.7 (9.0-12.0) sec INR 1.0 (<1.2) APTT 39.4 H (22.0-30.0) sec Sodium 136 L (137-145) mmol/L Potassium 4.7 (3.5-5.1) mmol/L Chloride 105 (98-107) mmol/L Carbon Dioxide 25 (22-30) mmol/L Anion Gap 6 mmol/L BUN 20 H (7-17) mg/dL Creatinine 1.14 H (0.52-1.04) mg/dL Est GFR (CKD-EPI)AfAm 51 (>60 ml/min/1.73 sqM) Est GFR (CKD-EPI)NonAf 44 (>60 ml/min/1.73 sqM) Glucose 112 H (74-99) mg/dL Plasma Lactic Acid Vikas (0.7-2.0) mmol/L Calcium 8.8 (8.4-10.2) mg/dL Magnesium (1.6-2.3) mg/dL Total Bilirubin 0.7 (0.2-1.3) mg/dL AST 38 H (14-36) U/L ALT 17 (4-34) U/L Alkaline Phosphatase 152 H (38-126) U/L Troponin I (0.000-0.034) ng/mL NT-Pro-B Natriuret Pep pg/mL Total Protein 6.3 (6.3-8.2) g/dL Albumin 3.5 (3.5-5.0) g/dL 09/25/19 09/25/19 09/25/19 Range/Units 18:45 18:45 18:45 WBC (3.8-10.6) k/uL RBC (3.80-5.40) m/uL Hgb (11.4-16.0) gm/dL Hct (34.0-46.0) % MCV (80.0-100.0) fL MCH (25.0-35.0) pg MCHC (31.0-37.0) g/dL RDW (11.5-15.5) % Plt Count (150-450) k/uL Neutrophils % % Lymphocytes % % Monocytes % % Eosinophils % % Basophils % % Neutrophils # (1.3-7.7) k/uL Lymphocytes # (1.0-4.8) k/uL Monocytes # (0-1.0) k/uL Eosinophils # (0-0.7) k/uL Basophils # (0-0.2) k/uL Hypochromasia Anisocytosis Macrocytosis PT (9.0-12.0) sec INR (<1.2) APTT (22.0-30.0) sec Sodium (137-145) mmol/L Potassium (3.5-5.1) mmol/L Chloride (98-107) mmol/L Carbon Dioxide (22-30) mmol/L Anion Gap mmol/L BUN (7-17) mg/dL Creatinine (0.52-1.04) mg/dL Est GFR (CKD-EPI)AfAm (>60 ml/min/1.73 sqM) Est GFR (CKD-EPI)NonAf (>60 ml/min/1.73 sqM) Glucose (74-99) mg/dL Plasma Lactic Acid Vikas 0.9 (0.7-2.0) mmol/L Calcium (8.4-10.2) mg/dL Magnesium (1.6-2.3) mg/dL Total Bilirubin (0.2-1.3) mg/dL AST (14-36) U/L ALT (4-34) U/L Alkaline Phosphatase (38-126) U/L Troponin I 0.012 (0.000-0.034) ng/mL NT-Pro-B Natriuret Pep 3670 pg/mL Total Protein (6.3-8.2) g/dL Albumin (3.5-5.0) g/dL 05/25/20 Range/Units 18:45 WBC (3.8-10.6) k/uL RBC (3.80-5.40) m/uL Hgb (11.4-16.0) gm/dL Hct (34.0-46.0) % MCV (80.0-100.0) fL MCH (25.0-35.0) pg MCHC (31.0-37.0) g/dL RDW (11.5-15.5) % Plt Count (150-450) k/uL Neutrophils % % Lymphocytes % % Monocytes % % Eosinophils % % Basophils % % Neutrophils # (1.3-7.7) k/uL Lymphocytes # (1.0-4.8) k/uL Monocytes # (0-1.0) k/uL Eosinophils # (0-0.7) k/uL Basophils # (0-0.2) k/uL Hypochromasia Anisocytosis Macrocytosis PT (9.0-12.0) sec INR (<1.2) APTT (22.0-30.0) sec Sodium (137-145) mmol/L Potassium (3.5-5.1) mmol/L Chloride (98-107) mmol/L Carbon Dioxide (22-30) mmol/L Anion Gap mmol/L BUN (7-17) mg/dL Creatinine (0.52-1.04) mg/dL Est GFR (CKD-EPI)AfAm (>60 ml/min/1.73 sqM) Est GFR (CKD-EPI)NonAf (>60 ml/min/1.73 sqM) Glucose (74-99) mg/dL Plasma Lactic Acid Vikas (0.7-2.0) mmol/L Calcium (8.4-10.2) mg/dL Magnesium 2.3 (1.6-2.3) mg/dL Total Bilirubin (0.2-1.3) mg/dL AST (14-36) U/L ALT (4-34) U/L Alkaline Phosphatase (38-126) U/L Troponin I (0.000-0.034) ng/mL NT-Pro-B Natriuret Pep pg/mL Total Protein (6.3-8.2) g/dL Albumin (3.5-5.0) g/dL Disposition Clinical Impression: Heart failure, Chronic anemia, Shortness of breath, Pulmonary edema, Elevated brain natriuretic peptide (BNP) level Disposition: ADMITTED IP TO THIS HOSP Condition: Fair Is patient prescribed a controlled substance at d/c from ED?: No Referrals: Heavenly Fitch MD [Primary Care Provider] - 1-2 days Time of Disposition: 20:32
--- NOTE | 2019-09-25 18:05 | XR ---
EXAMINATION TYPE: XR chest 2V DATE OF EXAM: 09/25/2019 COMPARISON: 04/11/2018 HISTORY: Short of breath TECHNIQUE: 2 views FINDINGS: There is pulmonary interstitial and alveolar edema. Heart is borderline enlarged. There is slight blunting right costophrenic angle. There is right central venous catheter with tip in the supe rior vena cava. IMPRESSION: There is pulmonary edema and small right pleural effusion that is new compared to old exa m and consistent with acute heart failure.
[2019-09-25] MEDS ORDERED: FUROSEMIDE 10 MG/ML 4 ML VIAL IV STA (18:47)
[2019-09-25 18:59] LABS: Anisocytosis Slight; Basophils % (A) 1 %; Eosinophils # (A) 0.1 k/uL (0-0.7); Eosinophils % (A) 2 %; HCT 27.9 % (34.0-46.0); HGB 9.1 gm/dL (11.4-16.0); Hypochromasia Slight; Lymphocytes # (A) 1.3 k/uL (1.0-4.8); Lymphocytes % (A) 18 %; MCH 31.6 pg (25.0-35.0); MCHC 32.5 g/dL (31.0-37.0); MCV 97.2 fL (80.0-100.0); Macrocytosis Slight; Mean Platelet Volume 8.4; Monocytes # (A) 0.8 k/uL (0-1.0); Monocytes % (A) 11 %; Neutrophils # (A) 4.7 k/uL (1.3-7.7); Neutrophils % (A) 66 %; Platelet Count 152 k/uL (150-450); RBC 2.87 m/uL (3.80-5.40); RDW 17.5 % (11.5-15.5); WBC 7.1 k/uL (3.8-10.6)
[2019-09-25 19:14] LABS: Partial Thromboplastin Time 39.4 sec (22.0-30.0); Prothrombin Time 10.7 sec (9.0-12.0)
[2019-09-25 19:17] LABS: Albumin 3.5 g/dL (3.5-5.0); Calcium 8.8 mg/dL (8.4-10.2); Potassium 4.7 mmol/L (3.5-5.1); Total Bilirubin 0.7 mg/dL (0.2-1.3); Total Protein 6.3 g/dL (6.3-8.2)
[2019-09-25] MEDS: FUROSEMIDE 10 MG/ML 4 ML VIAL IV SCH (21:03)
[2019-09-25] MEDS: NITROGLYCERIN OINT 1 INCH/GM PACKET TOPICAL SCH (22:41)
[2019-09-26] MEDS: FUROSEMIDE 10 MG/ML 4 ML VIAL IV SCH ×3 (07:16→19:49)
[2019-09-26] MEDS: NITROGLYCERIN OINT 1 INCH/GM PACKET TOPICAL SCH ×4 (10:11→19:50)
--- NOTE | 2019-09-26 11:34 | P.CRDCN ---
History of Present Illness Consult date: 09/26/19 Chief complaint: Shortness of breath History of present illness: This is a very pleasant 83-year-old female patient with a past medical history s ignificant for history of ovarian cancer with recurrence of that. Cancer and currently the patient is on chemotherapy, presented to the emergency room complaining of shortness of breath. The patient was in her usual state of 44 she was receiving chemotherapy until about 3 days ago when she started experiencing increasing shortness of breath with exertion. She did not have any shortness of breath laying flat in bed. No chest pain or chest discomfort. She stated that lately and for the last 24 hours she developed bilateral lower eczema disease pedal edema. On examination she does have bilateral ankle edema noted. Also on examination she does have crackles in both lung sounds. She was told in the past that she does have "congestive heart failure" and also she was told that she did have "heart attack". The patient never had any coronary revascularization in the past. The EKG this time showed sinus rhythm with nonspecific changes. The cardiac enzymes were checked and came in to be unremarkable. The BNP came in to be at 3600. The chest x-ray showed findings consistent with his heart failure. The patient received Lasix. She was on metoprolol at home and that was on hold. Currently she is hypertensive and also she is tachycardic with a resting heart rate around 100 bpm and she is feeling it. Past Medical History Past Medical History: Cancer, GERD/Reflux, Hypertension, Myocardial Infarction ([place]) Additional Past Medical History / Comment(s): MENIERE'S DISEASE. OVARIAN CANCER, Port a cath rt chest wall currently receiving chemotherapy. current UTI TX with CIPRO Last Myocardial Infarction Date:: UNKNOWN History of Any Multi-Drug Resistant Organisms: None Reported Past Surgical History: Breast Surgery, Hysterectomy Additional Past Surgical History / Comment(s): LUMPECTOMY LT BREAST. PORT PLACED RT CHEST. MASECTOMY LT BREAST. OVARIAN CANCER SX. COLONOSCOPY Past Anesthesia/Blood Transfusion Reactions: Motion Sickness Past Psychological History: Depression Smoking Status: Never smoker - Past Family History Mother Family Medical History: CVA/TIA Medications and Allergies Home Medications Medication Instructions Recorded Confirmed Type Losartan [Cozaar] 50 mg PO DAILY@1700 12/31/17 09/26/19 History Meclizine [Antivert] 25 mg PO BID@0900,1700 12/31/17 09/26/19 History Metoprolol Succinate [Toprol XL] 25 mg PO TID@0800,1300,1800 12/31/17 09/26/19 History Pantoprazole Sodium [Protonix] 40 mg PO DAILY@0800 12/31/17 09/26/19 History Venlafaxine HCl ER [Effexor XR] 75 mg PO DAILY 12/31/17 09/26/19 History amLODIPine [Norvasc] 5 mg PO DAILY@1700 12/31/17 09/26/19 History HYDROcodone/APAP 5-325MG [[place] 1 tab PO Q4HR PRN 03/01/18 09/26/19 History 5-325] Calcium Carbonate/Vitamin D3 1 each PO DAILY 09/26/19 09/26/19 History [Calcium 600-Vit D3 500 Softgel] Magnesium Asporotate 400 mg PO BID@0900,1800 09/26/19 09/26/19 History Melatonin 3 mg PO HS 09/26/19 09/26/19 History Rivaroxaban [Xarelto] 20 mg PO DAILY 09/26/19 09/26/19 History clonazePAM 1 mg PO HS 09/26/19 09/26/19 History Allergies Allergy/AdvReac Type Severity Reaction Status Date / Time codeine Allergy Vomiting Verified 09/26/19 08:06 iodine Allergy Rash/Hives Verified 09/26/19 08:06 Sulfa (Sulfonamide Allergy Rash/Hives Verified 09/26/19 08:06 Antibiotics) Physical Exam Vitals: Vital Signs Temp Pulse Resp BP Pulse Ox 09/26/19 06:33 90 16 152/76 98 09/26/19 03:13 90 16 137/68 100 09/25/19 23:41 16 09/25/19 22:44 94 17 165/82 99 09/25/19 20:50 82 18 158/67 97 09/25/19 15:35 98.3 F 77 18 156/69 93 L Intake and Output 09/25/19 09/26/19 09/26/19 22:59 06:59 14:59 Intake Total 20 Output Total 400 Balance -380 Intake: IV 20 Invasive Line 1 20 Output: Urine 400 Other: Weight 69.4 kg - Constitutional General appearance: no acute distress - Respiratory Respiratory: bilateral: CTA - Cardiovascular Rhythm: regular Heart sounds: normal: S1, S2 Abnormal Heart Sounds: systolic murmur Results 09/25/19 18:45 09/25/19 18:45 Cardiac Enzymes 09/25/19 09/25/19 09/26/19 Range/Units 18:45 18:45 01:23 AST 38 H (14-36) U/L Troponin I 0.012 0.026 (0.000-0.034) ng/mL 09/26/19 Range/Units 06:06 AST (14-36) U/L Troponin I 0.025 (0.000-0.034) ng/mL Coagulation 09/25/19 Range/Units 18:45 PT 10.7 (9.0-12.0) sec APTT 39.4 H (22.0-30.0) sec CBC 09/25/19 Range/Units 18:45 WBC 7.1 (3.8-10.6) k/uL RBC 2.87 L (3.80-5.40) m/uL Hgb 9.1 L (11.4-16.0) gm/dL Hct 27.9 L (34.0-46.0) % Plt Count 152 (150-450) k/uL Comprehensive Metabolic Panel 09/25/19 Range/Units 18:45 Sodium 136 L (137-145) mmol/L Potassium 4.7 (3.5-5.1) mmol/L Chloride 105 (98-107) mmol/L Carbon Dioxide 25 (22-30) mmol/L BUN 20 H (7-17) mg/dL Creatinine 1.14 H (0.52-1.04) mg/dL Glucose 112 H (74-99) mg/dL Calcium 8.8 (8.4-10.2) mg/dL AST 38 H (14-36) U/L ALT 17 (4-34) U/L Alkaline Phosphatase 152 H (38-126) U/L Total Protein 6.3 (6.3-8.2) g/dL Albumin 3.5 (3.5-5.0) g/dL Current Medications Generic Name Dose Route Start Last Admin Trade Name Freq PRN Reason Stop Dose Admin Furosemide 40 mg 09/25/19 21:00 09/26/19 07:16 Lasix IV 40 mg Q8H ZAINAB Administration Nitroglycerin 0.5 inch 09/25/19 22:00 09/26/19 10:11 Nitro-Bid Oint TOPICAL 0.5 inch QID ZAINAB Administration Intake and Output 09/25/19 09/26/19 09/26/19 22:59 06:59 14:59 Intake Total 20 Output Total 400 Balance -380 Intake: IV 20 Invasive Line 1 20 Output: Urine 400 Other: Weight 69.4 kg 09/25/19 18:45 09/25/19 18:45 Assessment and Plan Assessment: Assessment Congestive heart failure exacerbation of unknown etiology at this point Ovarian cancer and currently the patient is on chemotherapy. The ovarian cancer is recurrent Sinus tachycardia Hypertension Plan Start the patient on Lasix at 40 mg IV twice a day Continue monitoring her kidney function and electrolytes Obtain an echocardiogram was Doppler Start the patient on metoprolol Follow-up with the patient Thank you for allowing us participate in her care
[2019-09-26] MEDS ORDERED: HYDROcodone/APAP 5-325MG 1 EACH TAB PO PRN (12:41)
--- NOTE | 2019-09-26 12:50 | P.HPIM ---
History of Present Illness H&P Date: 09/26/19 Chief Complaint: Shortness of breath Alpa Waters is an 83-year-old female who presented to [facility] emergency room with a chief complaint of worsening shortness of breath, patient states that her symptoms started 2 weeks ago and has been worsening, her clinical presentation, chest x-ray and elevated BNP, all well compatible with acute congestive heart failure exacerbation, she was started on IV Lasix and was admitted to telemetry floor for further evaluation, patient has a known history of ovarian cancer, she also had a history of lower extremity DVT about 6 months ago, she has been maintained on Xarelto, she states that she has not missed taking her medication. Patient describes shortness of breath with any activity, otherwise she denies any other complaints there is no chest pain no fever or chills no headache or dizziness no cough no nausea or vomiting no abdominal pain no diarrhea no burning was urination no frequency or urgency and no hematuria. Past Medical History Past Medical History: Cancer, GERD/Reflux, Hypertension, Myocardial Infarction ([place]) Additional Past Medical History / Comment(s): MENIERE'S DISEASE. OVARIAN CANCER, Port a cath rt chest wall currently receiving chemotherapy. current UTI TX with CIPRO Last Myocardial Infarction Date:: UNKNOWN History of Any Multi-Drug Resistant Organisms: None Reported Past Surgical History: Breast Surgery, Hysterectomy Additional Past Surgical History / Comment(s): LUMPECTOMY LT BREAST. PORT PLACED RT CHEST. MASECTOMY LT BREAST. OVARIAN CANCER SX. COLONOSCOPY Past Anesthesia/Blood Transfusion Reactions: Motion Sickness Past Psychological History: Depression Smoking Status: Never smoker - Past Family History Mother Family Medical History: CVA/TIA Medications and Allergies Home Medications Medication Instructions Recorded Confirmed Type Losartan [Cozaar] 50 mg PO DAILY@1700 12/31/17 09/26/19 History Meclizine [Antivert] 25 mg PO BID@0900,1700 12/31/17 09/26/19 History Metoprolol Succinate [Toprol XL] 25 mg PO TID@0800,1300,1800 12/31/17 09/26/19 History Pantoprazole Sodium [Protonix] 40 mg PO DAILY@0800 12/31/17 09/26/19 History Venlafaxine HCl ER [Effexor XR] 75 mg PO DAILY 12/31/17 09/26/19 History amLODIPine [Norvasc] 5 mg PO DAILY@1700 12/31/17 09/26/19 History HYDROcodone/APAP 5-325MG [[place] 1 tab PO Q4HR PRN 03/01/18 09/26/19 History 5-325] Calcium Carbonate/Vitamin D3 1 each PO DAILY 09/26/19 09/26/19 History [Calcium 600-Vit D3 500 Softgel] Magnesium Asporotate 400 mg PO BID@0900,1800 09/26/19 09/26/19 History Melatonin 3 mg PO HS 09/26/19 09/26/19 History Rivaroxaban [Xarelto] 20 mg PO DAILY 09/26/19 09/26/19 History clonazePAM 1 mg PO HS 09/26/19 09/26/19 History Allergies Allergy/AdvReac Type Severity Reaction Status Date / Time codeine Allergy Vomiting Verified 09/26/19 08:06 iodine Allergy Rash/Hives Verified 09/26/19 08:06 Sulfa (Sulfonamide Allergy Rash/Hives Verified 09/26/19 08:06 Antibiotics) Physical Exam Vitals: Vital Signs Temp Pulse Resp BP Pulse Ox 09/26/19 06:33 90 16 152/76 98 09/26/19 03:13 90 16 137/68 100 09/25/19 23:41 16 09/25/19 22:44 94 17 165/82 99 09/25/19 20:50 82 18 158/67 97 09/25/19 15:35 98.3 F 77 18 156/69 93 L Intake and Output 09/25/19 09/26/19 09/26/19 22:59 06:59 14:59 Intake Total 20 Output Total 400 Balance -380 Intake: IV 20 Invasive Line 1 20 Output: Urine 400 Other: Weight 69.4 kg In general patient is alert and oriented 3 HEENT head normocephalic and atraumatic Neck is supple no JVD no goiter no lymphadenopathy Chest exam revealed scattered crackles in both lung crump no wheezing Cardiac exam reveals regular heart sounds S1 and S2 no gallops no murmurs Abdomen is soft nontender no organomegaly with normal bowel sounds Extremity exam reveals minimal edema bilaterally no cyanosis or clubbing Neurological examination reveals no gross focal deficit Results CBC & Chem 7: 09/25/19 18:45 09/25/19 18:45 Labs: Abnormal Lab Results - Last 24 Hours (Table) 09/25/19 09/25/19 09/25/19 Range/Units 18:45 18:45 18:45 RBC 2.87 L (3.80-5.40) m/uL Hgb 9.1 L (11.4-16.0) gm/dL Hct 27.9 L (34.0-46.0) % RDW 17.5 H (11.5-15.5) % APTT 39.4 H (22.0-30.0) sec Sodium 136 L (137-145) mmol/L BUN 20 H (7-17) mg/dL Creatinine 1.14 H (0.52-1.04) mg/dL Glucose 112 H (74-99) mg/dL AST 38 H (14-36) U/L Alkaline Phosphatase 152 H (38-126) U/L Assessment and Plan Plan: 1. Acute congestive heart failure exacerbation, patient was started on IV Lasix will continue, will obtain echocardiogram, cardiology consultation was requested 2. History of lower extremity DVT maintained on Xarelto will continue. 3. History of ovarian cancer 4. History of hypertension home medications reviewed and resume At this time will continue was current management awaiting echocardiogram and cardiology input Will follow closely
[2019-09-26] MEDS: METOPROLOL TARTRATE 25 MG TAB PO SCH ×2 (13:26→19:50)
[2019-09-26] MEDS: VENLAFAXINE HCL ER 75 MG CAP PO SCH (15:10)
[2019-09-26] MEDS: RIVAROXABAN 20 MG TAB PO SCH (15:10)
--- NOTE | 2019-09-26 15:10 | P.CONS ---
<Kajal Amador - Last Filed: 09/26/19 19:37> History of Present Illness - Reason for Consult Consult date: 09/25/19 Ovarian Cancer on Chemotherapy Requesting physician: Heavenly Fitch - Chief Complaint Shortness of Breath - History of Present Illness Alpa is a pleasant 83 year old female patient of Dr. Jenifer Luciano and Dr. Sarabia for treatment of her known Ovarian Cancer. She originally presented to Dr Page, her PCP with pelvic pressure and urinary incontinence with Dysuria. CT Scan of abdomen and pelvis on 06/16/13 revealed 8.7 x 11.4 cm pelvic mass. She was refered to Dr Louie, and subsequentely Dr Janee luciano at [facility]. She had Exloratory Laparotomy, Omentectomy and BSO with optimal cytoreductive surgery on 08/01/2013. 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 She recovered well from surgical morbidity, was re-evaluated by Dr Luciano at [facility] who recommended 6-8 cycles of Carboplatinum+Taxol Chemotherapy. She completed 6 cycles of adjuvant Chemotherapy, she did very well until she had recurrence in 2018. Since that time she has underwent treatment with multiple lines of therapy 12/30/17: CT Scan of abdomen/Pelvis : Sigmoid colon mass with peritoneal implants, had Colonoscopy by Dr Keys (12/14/17) with partially obstructing mass> biopsy revealed metastatic Ovarian Adenocarcinoma. The patient was seen by Dr Jenifer Luciano> he advised Re-starting Chemotherapy with Carboplatinum+Taxol. 04/29/18 - 10/2018: Tolerating Zejula well ; mild nausea>better by taking Zofran before. Denies abdominal pain. Most recently being treated with Intravenous chemotheraoy with Gemzar. This has been decreased twice for complaints of poor quality of life. Status Post Gemzar Cycle 8, day 1 on 09/14/19 On 09/25/19 she presented to [facility] emergency room with a chief complaint of worsening shortness of breath that has been lasting over the past two weeks and appears to be worsening. On admission Chest xay and Increased BNP was treated for exacerbation CHF. She is still taking xarelto for her recent history of DVT LE approx 6 months ago. Review of Systems A 14 point review of systems assessed and completed and all negative except HPI Past Medical History Past Medical History: Cancer, GERD/Reflux, Hypertension, Myocardial Infarction ([place]) Additional Past Medical History / Comment(s): MENIERE'S DISEASE. OVARIAN CANCER, Port a cath rt chest wall currently receiving chemotherapy. current UTI TX with CIPRO Last Myocardial Infarction Date:: UNKNOWN History of Any Multi-Drug Resistant Organisms: None Reported Past Surgical History: Breast Surgery, Hysterectomy Additional Past Surgical History / Comment(s): LUMPECTOMY LT BREAST. PORT PLACED RT CHEST. MASECTOMY LT BREAST. OVARIAN CANCER SX. COLONOSCOPY Past Anesthesia/Blood Transfusion Reactions: Motion Sickness Past Psychological History: Depression Smoking Status: Never smoker - Past Family History Mother Family Medical History: CVA/TIA Medications and Allergies Home Medications Medication Instructions Recorded Confirmed Type Losartan [Cozaar] 50 mg PO DAILY@1700 12/31/17 09/26/19 History Meclizine [Antivert] 25 mg PO BID@0900,1700 12/31/17 09/26/19 History Metoprolol Succinate [Toprol XL] 25 mg PO TID@0800,1300,1800 12/31/17 09/26/19 History Pantoprazole Sodium [Protonix] 40 mg PO DAILY@0800 12/31/17 09/26/19 History Venlafaxine HCl ER [Effexor XR] 75 mg PO DAILY 12/31/17 09/26/19 History amLODIPine [Norvasc] 5 mg PO DAILY@1700 12/31/17 09/26/19 History HYDROcodone/APAP 5-325MG [[place] 1 tab PO Q4HR PRN 03/01/18 09/26/19 History 5-325] Calcium Carbonate/Vitamin D3 1 each PO DAILY 09/26/19 09/26/19 History [Calcium 600-Vit D3 500 Softgel] Magnesium Asporotate 400 mg PO BID@0900,1800 09/26/19 09/26/19 History Melatonin 3 mg PO HS 09/26/19 09/26/19 History Rivaroxaban [Xarelto] 20 mg PO DAILY 09/26/19 09/26/19 History clonazePAM 1 mg PO HS 09/26/19 09/26/19 History Allergies Allergy/AdvReac Type Severity Reaction Status Date / Time codeine Allergy Vomiting Verified 09/26/19 08:06 iodine Allergy Rash/Hives Verified 09/26/19 08:06 Sulfa (Sulfonamide Allergy Rash/Hives Verified 09/26/19 08:06 Antibiotics) Physical Exam Vitals: Vital Signs Temp Pulse Resp BP Pulse Ox 09/26/19 06:33 90 16 152/76 98 09/26/19 03:13 90 16 137/68 100 09/25/19 23:41 16 09/25/19 22:44 94 17 165/82 99 09/25/19 20:50 82 18 158/67 97 09/25/19 15:35 98.3 F 77 18 156/69 93 L Intake and Output 09/25/19 09/26/19 09/26/19 22:59 06:59 14:59 Intake Total 20 Output Total 400 Balance -380 Intake: IV 20 Invasive Line 1 20 Output: Urine 400 Other: Weight 69.4 kg Gen: Alert and oriented, NAD Head: NCAT Neck: Supple Lungs: DIminished, mild increase Heart: RrR Abdomen: Soft tender Ext: Mild edema Mood: Calm SKin: No lesions or rash Results CBC & Chem 7: 09/26/19 06:06 09/26/19 06:06 Labs: Abnormal Lab Results - Last 24 Hours (Table) 09/25/19 09/25/19 09/25/19 Range/Units 18:45 18:45 18:45 RBC 2.87 L (3.80-5.40) m/uL Hgb 9.1 L (11.4-16.0) gm/dL Hct 27.9 L (34.0-46.0) % RDW 17.5 H (11.5-15.5) % APTT 39.4 H (22.0-30.0) sec Sodium 136 L (137-145) mmol/L BUN 20 H (7-17) mg/dL Creatinine 1.14 H (0.52-1.04) mg/dL Glucose 112 H (74-99) mg/dL AST 38 H (14-36) U/L Alkaline Phosphatase 152 H (38-126) U/L Chest x-ray: report reviewed Assessment and Plan (1) Heart failure Current Visit: Yes Status: Acute Code(s): I50.9 - HEART FAILURE, UNSPECIFIED SNOMED Code(s): 08290591 (2) Pulmonary edema Current Visit: Yes Status: Acute Code(s): J81.1 - CHRONIC PULMONARY EDEMA SNOMED Code(s): 54791917 (3) Shortness of breath Current Visit: Yes Status: Acute Code(s): R06.02 - SHORTNESS OF BREATH SNOMED Code(s): 328657768 (4) Ovarian cancer Current Visit: No Status: Acute Code(s): C56.9 - MALIGNANT NEOPLASM OF UNSPECIFIED OVARY SNOMED Code(s): 617455862 Plan: Assessment and Recommendations: Recurrent Ovarian Cancer: Metastatic - Failed Multiple lines of therapy most recent on treatment with Gemsar. - Last Chemotherapy 09/13/19, Cycle 8, day 1 - Recheck Ca 125 - Follow-up after discharge to resume management of oncologic issues Recent history of LE DVT: - Continue on Xarelto Dyspnea and SHortness of Breath: - [place] to be secondary to CHF, if not improving further evaluate with CT for possible metastatic component Exacerbation CHF - Per Primary Team Thank you for allowing us to participate in care of this patient will follow along with you Physician Attest: I have completed the full history and physcial and agree with above dictation, dictated as a scribe <Doyle Lee - Last Filed: 09/26/19 23:14> Physical Exam Vitals: Vital Signs Temp Pulse Pulse Resp BP BP Pulse Ox 09/26/19 23:00 78 18 132/65 95 09/26/19 20:00 98.2 F 83 18 143/67 100 09/26/19 19:51 98 F 83 18 143/67 100 09/26/19 18:39 80 18 150/75 98 09/26/19 18:00 82 18 143/110 100 09/26/19 06:33 90 16 152/76 98 09/26/19 03:13 90 16 137/68 100 09/25/19 23:41 16 Intake and Output 09/26/19 09/26/19 09/27/19 14:59 22:59 06:59 Output Total 0 Balance 0 Output: Urine 0 Other: Voiding Method Toilet # Voids 0 Weight 69.4 kg - Respiratory Respiratory: bilateral: rales - Cardiovascular +ve JVD Rhythm: regular Heart sounds: normal: S1, S2 - Musculoskeletal Mild b/l 1 + ankle swelling Results CBC & Chem 7: 09/26/19 06:06 09/26/19 06:06 Labs: Abnormal Lab Results - Last 24 Hours (Table) 09/26/19 09/26/19 09/26/19 Range/Units 06:06 06:06 06:06 RBC 2.56 L (3.80-5.40) m/uL Hgb 8.2 L (11.4-16.0) gm/dL Hct 25.8 L (34.0-46.0) % MCV 100.7 H (80.0-100.0) fL RDW 17.3 H (11.5-15.5) % Retic Count 7.5 H (0.5-2.0) % Sodium 136 L (137-145) mmol/L BUN 21 H (7-17) mg/dL Creatinine 1.30 H (0.52-1.04) mg/dL Alkaline Phosphatase 127 H (38-126) U/L Total Protein 5.8 L (6.3-8.2) g/dL Albumin 3.1 L (3.5-5.0) g/dL Assessment and Plan Plan: Add: Most recent Ca 125 shows stability
[2019-09-26 15:52] LABS: Anisocytosis Slight; Basophils # (A) 0.1 k/uL (0-0.2); Basophils % (A) 1 %; Eosinophils # (A) 0.1 k/uL (0-0.7); Eosinophils % (A) 2 %; HCT 25.8 % (34.0-46.0); HGB 8.2 gm/dL (11.4-16.0); Hypochromasia Marked; Lymphocytes # (A) 1.7 k/uL (1.0-4.8); Lymphocytes % (A) 30 %; MCH 31.9 pg (25.0-35.0); MCHC 31.7 g/dL (31.0-37.0); MCV 100.7 fL (80.0-100.0); Macrocytosis Slight; Monocytes # (A) 0.9 k/uL (0-1.0); Monocytes % (A) 16 %; Neutrophils # (A) 2.7 k/uL (1.3-7.7); Neutrophils % (A) 48 %; Platelet Count 159 k/uL (150-450); RBC 2.56 m/uL (3.80-5.40); RDW 17.3 % (11.5-15.5); WBC 5.7 k/uL (3.8-10.6)
[2019-09-26 15:56] LABS: Reticulocyte % 7.5 % (0.5-2.0)
[2019-09-26 16:00] LABS: Albumin 3.1 g/dL (3.5-5.0); Calcium 8.4 mg/dL (8.4-10.2); Potassium 4.2 mmol/L (3.5-5.1); Total Bilirubin 0.6 mg/dL (0.2-1.3); Total Protein 5.8 g/dL (6.3-8.2)
[2019-09-26] MEDS: amLODIPine 5 MG TAB PO SCH (17:12)
[2019-09-26] MEDS: MECLIZINE 25 MG TAB PO SCH (17:12)
[2019-09-26] MEDS: LOSARTAN 50 MG TAB PO SCH (17:12)
[2019-09-26] MEDS ORDERED: [UNRECOGNIZED DRUG - OTHER] PO SCH (18:00)
[2019-09-26] MEDS: clonazePAM 1 MG TAB PO SCH (19:50)
[2019-09-26] MEDS: MELATONIN 3 MG TABLET PO SCH (19:50)
[2019-09-26 23:33] LABS: Folate, Serum 7.6 ng/mL
[2019-09-26 23:37] LABS: % Iron Saturation 10.21 (12.00-45.00); Ferritin 653.8 ng/mL (10.0-291.0)
[2019-09-26 23:58] LABS: Cancer Antigen 125 41.6 U/mL (0.0-30.1)
[2019-09-27] MEDS: FUROSEMIDE 10 MG/ML 4 ML VIAL IV SCH (04:38)
[2019-09-27 07:41] LABS: Albumin 3.4 g/dL (3.5-5.0); Calcium 8.7 mg/dL (8.4-10.2); Potassium 4.1 mmol/L (3.5-5.1); Total Bilirubin 0.6 mg/dL (0.2-1.3); Total Protein 6.3 g/dL (6.3-8.2)
[2019-09-27 08:23] LABS: Anisocytosis Slight; Basophils % (A) 1 %; Eosinophils # (A) 0.3 k/uL (0-0.7); Eosinophils % (A) 5 %; HCT 25.7 % (34.0-46.0); HGB 8.3 gm/dL (11.4-16.0); Hypochromasia Moderate; Lymphocytes # (A) 1.6 k/uL (1.0-4.8); Lymphocytes % (A) 27 %; MCH 31.9 pg (25.0-35.0); MCHC 32.4 g/dL (31.0-37.0); MCV 98.6 fL (80.0-100.0); Macrocytosis Slight; Mean Platelet Volume 8.2; Monocytes # (A) 0.8 k/uL (0-1.0); Monocytes % (A) 14 %; Neutrophils # (A) 2.9 k/uL (1.3-7.7); Neutrophils % (A) 50 %; Platelet Count 225 k/uL (150-450); RBC 2.61 m/uL (3.80-5.40); RDW 17.1 % (11.5-15.5); WBC 5.8 k/uL (3.8-10.6)
[2019-09-27] MEDS: MECLIZINE 25 MG TAB PO SCH ×2 (09:34→19:55)
[2019-09-27] MEDS: RIVAROXABAN 20 MG TAB PO SCH (09:35)
[2019-09-27] MEDS: CALCIUM CARB-VIT D 500MG-200UN 1 EACH TAB PO SCH (09:35)
[2019-09-27] MEDS: METOPROLOL TARTRATE 25 MG TAB PO SCH ×3 (09:35→20:11)
[2019-09-27] MEDS: PANTOPRAZOLE 40 MG TABLET PO SCH (09:35)
[2019-09-27] MEDS: NITROGLYCERIN OINT 1 INCH/GM PACKET TOPICAL SCH ×4 (09:35→20:11)
[2019-09-27] MEDS: VENLAFAXINE HCL ER 75 MG CAP PO SCH (09:35)
[2019-09-27 11:28] VITALS: BMI 25.4
[2019-09-27] MEDS: FUROSEMIDE 40 MG TAB PO SCH (12:39)
[2019-09-27 14:50] VITALS: RESP 18
--- NOTE | 2019-09-27 14:58 | XR ---
EXAMINATION TYPE: XR chest 2V DATE OF EXAM: 09/27/2019 COMPARISON: Prior CT March 02, 2018. Most recent chest x-ray 2 days ago. HISTORY: Shortness of breath and CHF. TECHNIQUE: Frontal and lateral views of the chest are obtained. FINDINGS: There is stable right internal jugular Mediport catheter. Absent left breast shadow consis tent with left-sided mastectomy change. Chronic parenchymal changes bilaterally without suspicious ne w focal airspace opacity, pleural effusion, or pneumothorax seen. Mild cardiomegaly with atherosclero tic thoracic aorta. Perhaps mild central vascular congestion. Stable. Degenerative change bilateral s houlders redemonstrated. IMPRESSION: Chronic parenchymal changes and mild cardiomegaly with perhaps mild central vascular con gestion without suspicious new acute pulmonary process. No significant change from recent x-ray.
--- NOTE | 2019-09-27 15:11 | P.PN ---
Subjective Progress Note Date: 09/27/19 This is a very pleasant 83-year-old female patient with a past medical history significant for history of ovarian cancer with recurrence of that. Cancer and currently the patient is on chemotherapy, presented to the emergency room complaining of shortness of breath. The patient was in her usual state of 42 she was receiving chemotherapy until about 3 days ago when she started experiencing increasing shortness of breath with exertion. She did not have any shortness of breath laying flat in bed. No chest pain or chest discomfort. Patient was seen diuresed here on IV Lasix, last night diuresis significant amount and today is feeling 100%. Hemodynamically she is stable. An echocardiogram with Doppler study has been performed but is yet pending. Sodium today 137, potassium 4.1, BUN 27, creatinine 1.4, weight overall down 2 kg today. We will discontinue her IV Lasix today and start her on oral diuretics. Review her echocardiogram with Doppler study. From our perspective she may be able to be discharged home to follow-up in the office post discharge. Objective - Vital Signs Vital signs: Vital Signs Temp 98.2 F 09/27/19 08:00 Pulse 96 09/27/19 08:00 Resp 20 09/27/19 08:00 BP 147/71 09/27/19 08:00 Pulse Ox 100 09/27/19 08:00 Intake & Output 09/26/19 09/27/19 09/27/19 18:59 06:59 18:59 Intake Total 240 Output Total 120 Balance -120 240 Weight 67.1 kg 67.1 kg Intake: Oral 240 Output: Urine 120 Other: Voiding Method Toilet Toilet # Voids 1 - Exam PHYSICAL EXAMINATION: GENERAL: 83-year-old female in no acute distress at the time of my examination HEENT: Head is atraumatic, normocephalic. Pupils equal, round. Sclera anicteric. Conjunctiva are clear. Mucous membranes of the mouth are moist. Neck is supple. There is no elevated jugular venous pressure. No carotid bruit is heard. HEART EXAMINATION: Heart S1 S2 1 systolic murmur is heard CHEST EXAMINATION: Lungs are clear to auscultation and precussion. No chest wall tenderness is noted on palpation or with deep breathing. ABDOMEN: Soft, nontender. Bowel sounds are heard. No organomegaly noted. EXTREMITIES: 2+ peripheral pulses with trace evidence of peripheral edema and no calf tenderness noted. NEUROLOGIC patient is awake, alert and oriented 3 . . - Labs CBC & Chem 7: 09/27/19 06:19 09/27/19 06:19 Labs: Abnormal Lab Results - Last 24 Hours (Table) 09/26/19 09/26/19 09/26/19 Range/Units 06:06 06:06 06:06 RBC 2.56 L (3.80-5.40) m/uL Hgb 8.2 L (11.4-16.0) gm/dL Hct 25.8 L (34.0-46.0) % MCV 100.7 H (80.0-100.0) fL RDW 17.3 H (11.5-15.5) % Retic Count 7.5 H (0.5-2.0) % Sodium 136 L (137-145) mmol/L BUN 21 H (7-17) mg/dL Creatinine 1.30 H (0.52-1.04) mg/dL Iron 29 L (50-170) ug/dL % Saturation 10.21 L (12.00-45.00) Ferritin 653.8 H (10.0-291.0) ng/mL AST (14-36) U/L Alkaline Phosphatase 127 H (38-126) U/L Total Protein 5.8 L (6.3-8.2) g/dL Albumin 3.1 L (3.5-5.0) g/dL [place] 125 Antigen 41.6 H (0.0-30.1) U/mL 09/27/19 09/27/19 Range/Units 06:19 06:19 RBC 2.61 L (3.80-5.40) m/uL Hgb 8.3 L (11.4-16.0) gm/dL Hct 25.7 L (34.0-46.0) % MCV (80.0-100.0) fL RDW 17.1 H (11.5-15.5) % Retic Count (0.5-2.0) % Sodium (137-145) mmol/L BUN 27 H (7-17) mg/dL Creatinine 1.42 H (0.52-1.04) mg/dL Iron (50-170) ug/dL % Saturation (12.00-45.00) Ferritin (10.0-291.0) ng/mL AST 38 H (14-36) U/L Alkaline Phosphatase 127 H (38-126) U/L Total Protein (6.3-8.2) g/dL Albumin 3.4 L (3.5-5.0) g/dL [place] 125 Antigen (0.0-30.1) U/mL Assessment and Plan Plan: Assessment and plan #1 congestive heart failure, resolving, LV function unknown #2 ovarian cancer, currently undergoing chemotherapy #3 hypertension Plan We will discontinue the IV Lasix and start the patient on oral diuretics. Review the echocardiogram with Doppler study. DNP note has been reviewed, I agree with a documented findings and plan of care. Patient was seen and examined.
--- NOTE | 2019-09-27 17:06 | P.PN ---
<Kajal Amador - Last Filed: 09/27/19 17:02> Subjective Progress Note Date: 09/27/19 Principal diagnosis: Heart Failure Feeling a little better this am during evaluation, still exertional dyspnea Objective - Vital Signs Vital signs: Vital Signs Temp 98.2 F 09/27/19 12:00 Pulse 86 09/27/19 15:56 Resp 18 09/27/19 15:56 BP 137/84 09/27/19 12:00 Pulse Ox 98 09/27/19 16:31 Intake & Output 09/26/19 09/27/19 09/27/19 18:59 06:59 18:59 Intake Total 330 Output Total 120 Balance -120 330 Weight 67.1 kg 67.1 kg Intake: Oral 330 Output: Urine 120 Other: Voiding Method Toilet Toilet # Voids 1 3 - Exam Gen: Alert and oriented, NAD Head: NCAT Neck: Supple Lungs: DIminished, mild increase Heart: RrR Abdomen: Soft tender Ext: Mild edema Mood: Calm SKin: No lesions or rash - Labs CBC & Chem 7: 09/27/19 06:19 09/27/19 06:19 Labs: Abnormal Lab Results - Last 24 Hours (Table) 09/26/19 09/27/19 09/27/19 Range/Units 06:06 06:19 06:19 RBC 2.61 L (3.80-5.40) m/uL Hgb 8.3 L (11.4-16.0) gm/dL Hct 25.7 L (34.0-46.0) % RDW 17.1 H (11.5-15.5) % BUN 27 H (7-17) mg/dL Creatinine 1.42 H (0.52-1.04) mg/dL Iron 29 L (50-170) ug/dL % Saturation 10.21 L (12.00-45.00) Ferritin 653.8 H (10.0-291.0) ng/mL AST 38 H (14-36) U/L Alkaline Phosphatase 127 H (38-126) U/L Albumin 3.4 L (3.5-5.0) g/dL CA 125 Antigen 41.6 H (0.0-30.1) U/mL Assessment and Plan (1) Heart failure Current Visit: Yes Status: Acute Code(s): I50.9 - HEART FAILURE, UNSPECIFIED SNOMED Code(s): 79331677 (2) Pulmonary edema Current Visit: Yes Status: Acute Code(s): J81.1 - CHRONIC PULMONARY EDEMA SNOMED Code(s): 39751654 (3) Shortness of breath Current Visit: Yes Status: Acute Code(s): R06.02 - SHORTNESS OF BREATH SNOMED Code(s): 068337742 (4) Ovarian cancer Current Visit: No Status: Acute Code(s): C56.9 - MALIGNANT NEOPLASM OF UNSPECIFIED OVARY SNOMED Code(s): 257849987 Plan: Assessment and Recommendations: Recurrent Ovarian Cancer: Metastatic - Failed Multiple lines of therapy most recent on treatment with Gemsar. - Last Chemotherapy 09/13/19, Cycle 8, day 1 - Recheck Ca 125 - Follow-up after discharge to resume management of oncologic issues Normocytic Anemia: - Multifactoral Malignancy, Inflammation, and component of B12 deficiency - B12 ordered daily x5 - Ferritin increased, Iron low although with increased ferritin patient has enough iron stores. parental not indicated at this time. Recent history of LE DVT: - Continue on Xarelto Dyspnea and SHortness of Breath: - Irons to be secondary to CHF, if not improving further evaluate with CT for possible metastatic component Exacerbation CHF - Per Primary Team Increased Renal FUnction: - Continue to monitor - Cardiology and primary teams Plan: - Daily CBC Monitoring - B12 Daily - All other acute issues per primary team - Chemotherapy on hold until after discharged and follow up with primary oncologist Physician Attest: I have completed the full history and physcial and agree with above dictation, dictated as a scribe <Doyle Lee - Last Filed: 09/27/19 21:49> Subjective Add: Orthopnea is improved. Objective - Vital Signs Vital signs: Vital Signs Temp 98.2 F 09/27/19 12:00 Pulse 98 09/27/19 20:00 Resp 18 09/27/19 20:00 BP 135/72 09/27/19 20:00 Pulse Ox 91 L 09/27/19 20:00 Intake & Output 09/27/19 09/27/19 09/28/19 06:59 18:59 06:59 Intake Total 570 Output Total 120 Balance -120 570 Weight 67.1 kg 67.1 kg Intake: Oral 570 Output: Urine 120 Other: Voiding Method Toilet Toilet Toilet # Voids 1 3 - Exam Add: +ve basiliar rales, persistent , but improved - Labs CBC & Chem 7: 09/27/19 06:19 09/27/19 06:19 Labs: Abnormal Lab Results - Last 24 Hours (Table) 09/26/19 09/27/19 09/27/19 Range/Units 06:06 06:19 06:19 RBC 2.61 L (3.80-5.40) m/uL Hgb 8.3 L (11.4-16.0) gm/dL Hct 25.7 L (34.0-46.0) % RDW 17.1 H (11.5-15.5) % BUN 27 H (7-17) mg/dL Creatinine 1.42 H (0.52-1.04) mg/dL Iron 29 L (50-170) ug/dL % Saturation 10.21 L (12.00-45.00) Ferritin 653.8 H (10.0-291.0) ng/mL AST 38 H (14-36) U/L Alkaline Phosphatase 127 H (38-126) U/L Albumin 3.4 L (3.5-5.0) g/dL CA 125 Antigen 41.6 H (0.0-30.1) U/mL Assessment and Plan Plan: Add: Pt improved with diuresis, indicating most likely CHF componen. Defer to Cardiology for ongoing management
[2019-09-27] MEDS: amLODIPine 5 MG TAB PO SCH (19:55)
[2019-09-27] MEDS: LOSARTAN 50 MG TAB PO SCH (19:55)
[2019-09-27] MEDS: CYANOCOBALAMIN 1,000 MCG/ML 1 ML VIAL IM SCH (19:56)
[2019-09-27] MEDS: MELATONIN 3 MG TABLET PO SCH (20:11)
[2019-09-27] MEDS: clonazePAM 1 MG TAB PO SCH (20:11)
--- NOTE | 2019-09-27 20:34 | ECHOF ---
Referral Reason:SOB MEASUREMENTS -------- HEIGHT: 162.6 cm WEIGHT: 66.7 kg BP: 128/66 IVSd: 1.3 cm (0.6 - 1.1) LVIDd: 3.2 cm (3.9 - 5.3) LVPWd: 1.1 cm (0.6 - 1.1) IVSs: 1.4 cm LVIDs: 2.4 cm LVPWs: 1.6 cm RVIDd: 3.2 cm (< 3.3) LAESV Index (A-L): 29.28 ml/m Ao Diam: 3.0 cm (2.0 - 3.7) AV Cusp: 1.7 cm (1.5 - 2.6) EPSS: 0.5 cm MV E Librado: 0.66 m/s MV DecT: 189 ms MV A Librado: 1.37 m/s MV E/A Ratio: 0.48 AR PHT: 461 ms RAP: 5.00 mmHg RVSP: 55.45 mmHg MV EF SLOPE: 49.24 mm/s (70 - 150) MV EXCURSION: 15.23 mm (> 18.000) FINDINGS -------- Sinus rhythm. This was a technically adequate study. The left ventricular size is normal. There is mild concentric left ventricular hypertrophy. Overa ll left ventricular systolic function is normal with, an EF between 55 - 60 %. The diastolic fillin g pattern is normal for the age of the patient 19.85. The right ventricle is normal in size. LA is midly dilated 29-33ml/m2. The right atrial size is normal. Interatrial and interventricular septum intact. The aortic valve is trileaflet and appears structurally normal. There is mild aortic valve sclerosi s. There is mild aortic regurgitation. There is no evidence of aortic stenosis. There is trace mitral regurgitation. Moderate to severe tricuspid regurgitation present. There is moderate to severe pulmonary hypertens ion. The right ventricular systolic pressure, as measured by Doppler, is 55.45mmHg. There is no pulmonic regurgitation present. The aortic root size is normal. Normal inferior vena cava with normal inspiratory collapse consistent with estimated right atrial pre ssure of 5 mmHg. There is no pericardial effusion. CONCLUSIONS -------- 1. Sinus rhythm. 2. This was a technically adequate study. 3. The left ventricular size is normal. 4. There is mild concentric left ventricular hypertrophy. 5. Overall left ventricular systolic function is normal with, an EF between 55 - 60 %. 6. The diastolic filling pattern is normal for the age of the patient 19.85 7. The right ventricle is normal in size. 8. LA is midly dilated 29-33ml/m2. 9. The right atrial size is normal. 10. Interatrial and interventricular septum intact. 11. The aortic valve is trileaflet and appears structurally normal. 12. There is mild aortic valve sclerosis. 13. There is mild aortic regurgitation. 14. There is no evidence of aortic stenosis. 15. There is trace mitral regurgitation. 16. Moderate to severe tricuspid regurgitation present. 17. There is moderate to severe pulmonary hypertension. 18. The right ventricular systolic pressure, as measured by Doppler, is 55.45mmHg. 19. There is no pulmonic regurgitation present. 20. The aortic root size is normal. 21. Normal inferior vena cava with normal inspiratory collapse consistent with estimated right atrial pressure of 5 mmHg. 22. There is no pericardial effusion. JUNIOR STAFF ACCOUNTANT: Jaquelin Camargo RDCS
--- NOTE | 2019-09-27 22:19 | P.PN ---
Subjective Progress Note Date: 09/27/19 On 09/27/2019 patient was seen and examined on the telemetry floor she is alert and oriented 3 in no apparent distress she reports improvement in her shortness of breath there is no chest pain there is no palpitation there is no fever or chills no headache or dizziness no cough no nausea or vomiting no abdominal pain no diarrhea no burning was urination no frequency or urgency and no hematuria Objective - Vital Signs Vital signs: Vital Signs Temp 98.2 F 09/27/19 12:00 Pulse 98 09/27/19 20:00 Resp 18 09/27/19 20:00 BP 135/72 09/27/19 20:00 Pulse Ox 91 L 09/27/19 20:00 Intake & Output 09/27/19 09/27/19 09/28/19 06:59 18:59 06:59 Intake Total 570 Output Total 120 Balance -120 570 Weight 67.1 kg 67.1 kg Intake: Oral 570 Output: Urine 120 Other: Voiding Method Toilet Toilet Toilet # Voids 1 3 - Exam In general patient is alert and oriented 3 HEENT head normocephalic and atraumatic Neck is supple no JVD no goiter no lymphadenopathy Chest exam reveals a few scattered crackles no wheezing Cardiac exam reveals regular heart sounds S1 and S2 no gallops no murmurs Abdomen is soft nontender no organomegaly with normal bowel sounds Extremity exam reveals no edema no cyanosis or clubbing Neurological exam reveals no gross focal deficit - Labs CBC & Chem 7: 09/27/19 06:19 09/27/19 06:19 Labs: Abnormal Lab Results - Last 24 Hours (Table) 09/26/19 09/27/19 09/27/19 Range/Units 06:06 06:19 06:19 RBC 2.61 L (3.80-5.40) m/uL Hgb 8.3 L (11.4-16.0) gm/dL Hct 25.7 L (34.0-46.0) % RDW 17.1 H (11.5-15.5) % BUN 27 H (7-17) mg/dL Creatinine 1.42 H (0.52-1.04) mg/dL Iron 29 L (50-170) ug/dL % Saturation 10.21 L (12.00-45.00) Ferritin 653.8 H (10.0-291.0) ng/mL AST 38 H (14-36) U/L Alkaline Phosphatase 127 H (38-126) U/L Albumin 3.4 L (3.5-5.0) g/dL CA 125 Antigen 41.6 H (0.0-30.1) U/mL Assessment and Plan Plan: 1. Acute diastolic congestive heart failure exacerbation, patient was started on IV Lasix will continue, echocardiogram done today and revealed normal left ventricular systolic function with ejection fraction of 55-60%, also there was evidence of moderate to severe pulmonary hypertension cardiology consultation was requested 2. History of lower extremity DVT maintained on Xarelto will continue. 3. History of ovarian cancer, oncology following 4. History of hypertension home medications reviewed and resume. 5. Moderate to severe pulmonary hypertension At this time will continue was current management awaiting echocardiogram and cardiology input Will follow closely
[2019-09-28 05:56] VITALS: TEMP 98.8
[2019-09-28 07:03] LABS: Anisocytosis Slight; Basophils % (A) 1 %; Eosinophils # (A) 0.3 k/uL (0-0.7); Eosinophils % (A) 5 %; HCT 23.7 % (34.0-46.0); HGB 7.8 gm/dL (11.4-16.0); Hypochromasia Moderate; Lymphocytes # (A) 1.8 k/uL (1.0-4.8); Lymphocytes % (A) 32 %; MCH 31.7 pg (25.0-35.0); MCHC 32.8 g/dL (31.0-37.0); MCV 96.6 fL (80.0-100.0); Macrocytosis Slight; Mean Platelet Volume 7.9; Monocytes # (A) 0.8 k/uL (0-1.0); Monocytes % (A) 14 %; Neutrophils # (A) 2.5 k/uL (1.3-7.7); Neutrophils % (A) 44 %; Platelet Count 291 k/uL (150-450); RBC 2.45 m/uL (3.80-5.40); RDW 17.1 % (11.5-15.5); WBC 5.7 k/uL (3.8-10.6)
[2019-09-28 07:13] LABS: Calcium 8.4 mg/dL (8.4-10.2); Potassium 3.8 mmol/L (3.5-5.1); Total Bilirubin 0.5 mg/dL (0.2-1.3); Total Protein 5.8 g/dL (6.3-8.2)
[2019-09-28] MEDS: PANTOPRAZOLE 40 MG TABLET PO SCH (08:53)
[2019-09-28] MEDS: CALCIUM CARB-VIT D 500MG-200UN 1 EACH TAB PO SCH (08:53)
[2019-09-28] MEDS: CYANOCOBALAMIN 1,000 MCG/ML 1 ML VIAL IM SCH (08:53)
[2019-09-28] MEDS: NITROGLYCERIN OINT 1 INCH/GM PACKET TOPICAL SCH ×2 (08:54→14:08)
[2019-09-28] MEDS: MECLIZINE 25 MG TAB PO SCH (08:54)
[2019-09-28] MEDS: METOPROLOL TARTRATE 25 MG TAB PO SCH ×2 (08:54→16:05)
[2019-09-28] MEDS: RIVAROXABAN 20 MG TAB PO SCH (08:54)
[2019-09-28] MEDS: FUROSEMIDE 40 MG TAB PO SCH (08:54)
[2019-09-28] MEDS: VENLAFAXINE HCL ER 75 MG CAP PO SCH (08:55)
--- NOTE | 2019-09-28 10:30 | P.PN ---
Subjective Progress Note Date: 09/28/19 This is a very pleasant 83-year-old female patient with a past medical history significant for history of ovarian cancer with recurrence of that. Cancer and currently the patient is on chemotherapy, presented to the emergency room complaining of shortness of breath. The patient was in her usual state of 42 she was receiving chemotherapy until about 3 days ago when she started experiencing increasing shortness of breath with exertion. She did not have any shortness of breath laying flat in bed. No chest pain or chest discomfort. Patient was seen diuresed here on IV Lasix, last night diuresis significant amount and today is feeling 100%. Hemodynamically she is stable. An echocardiogram with Doppler study has been performed but is yet pending. Sodium today 137, potassium 4.1, BUN 27, creatinine 1.4, weight overall down 2 kg today. We will discontinue her IV Lasix today and start her on oral diuretics. Review her echocardiogram with Doppler study. From our perspective she may be able to be discharged home to follow-up in the office post discharge. 09/28/2019 Patient seen and examined this morning, feels well, no complaints. Hemodynamically stable. On oral diuretics. Echocardiogram with Doppler study revealed a normal left ventricular systolic function. Objective - Vital Signs Vital signs: Vital Signs Temp 98.8 F 09/28/19 04:00 Pulse 94 09/28/19 08:38 Resp 18 09/28/19 08:38 BP 147/67 09/28/19 08:38 Pulse Ox 97 09/28/19 08:38 Intake & Output 09/27/19 09/28/19 09/28/19 18:59 06:59 18:59 Intake Total 570 120 Balance 570 120 Weight 67.1 kg 70 kg Intake: Oral 570 120 Other: Voiding Method Toilet Toilet Toilet # Voids 3 1 1 - Exam PHYSICAL EXAMINATION: GENERAL: 83-year-old female in no acute distress at the time of my examination HEENT: Head is atraumatic, normocephalic. Pupils equal, round. Sclera anicteric. Conjunctiva are clear. Mucous membranes of the mouth are moist. Neck is supple. There is no elevated jugular venous pressure. No carotid bruit is heard. HEART EXAMINATION: Heart S1 S2 1 systolic murmur is heard CHEST EXAMINATION: Lungs are clear to auscultation and precussion. No chest wall tenderness is noted on palpation or with deep breathing. ABDOMEN: Soft, nontender. Bowel sounds are heard. No organomegaly noted. EXTREMITIES: 2+ peripheral pulses with trace evidence of peripheral edema and no calf tenderness noted. NEUROLOGIC patient is awake, alert and oriented 3 . . - Labs CBC & Chem 7: 09/28/19 06:04 09/28/19 06:04 Labs: Abnormal Lab Results - Last 24 Hours (Table) 09/28/19 09/28/19 Range/Units 06:04 06:04 RBC 2.45 L (3.80-5.40) m/uL Hgb 7.8 L (11.4-16.0) gm/dL Hct 23.7 L (34.0-46.0) % RDW 17.1 H (11.5-15.5) % Sodium 136 L (137-145) mmol/L BUN 28 H (7-17) mg/dL Creatinine 1.44 H (0.52-1.04) mg/dL Total Protein 5.8 L (6.3-8.2) g/dL Albumin 3.0 L (3.5-5.0) g/dL Assessment and Plan Plan: Assessment and plan #1 congestive heart failure, diastolic, acute on chronic #2 ovarian cancer, currently undergoing chemotherapy #3 hypertension Plan From cardiology's perspective, patient may be able to be discharged home today. We will make her a follow-up appointment in the office with Dr. Juan post discharge. DNP note has been reviewed, I agree with a documented findings and plan of care. Patient was seen and examined.
[2019-09-28 12:33] VITALS: BP 165/72; PULSE 77
[2019-09-28] MEDS ORDERED: SODIUM FERRIC GLUCONAT-SUCROSE 125 MG in SODIUM CHLORIDE 0.9% 100 ML IVPB ONE (14:00)
--- NOTE | 2019-09-28 17:34 | P.DS ---
Providers Date of admission: 09/26/19 02:38 Expected date of discharge: 09/28/19 Attending physician: Heavenly Fitch Consults: 09/25/19 20:34 Consult Physician Routine Consulting Provider: [facility] Consult Reason/Comments: acute CHF Do you want consulting provider notified?: Yes Consult Physician Routine Consulting Provider: Doyle Lee Consult Reason/Comments: ovarian cancer, chemo Do you want consulting provider notified?: Yes Primary care physician: [facility] Course: Diagnoses on discharge: 1. Acute diastolic congestive heart failure exacerbation, patient was started on IV Lasix will continue, echocardiogram done today and revealed normal left ventricular systolic function with ejection fraction of 55-60%, also there was evidence of moderate to severe pulmonary hypertension cardiology consultation was requested 2. History of lower extremity DVT maintained on Xarelto will continue. 3. History of ovarian cancer, oncology following 4. History of hypertension home medications reviewed and resume. 5. Moderate to severe pulmonary hypertension Hospital course: Alpa Wtaers is an 83-year-old female who presented to [facility] emergency room with a chief complaint of worsening shortness of breath, patient states that her symptoms started 2 weeks ago and has been worsening, her clinical presentation, chest x-ray and elevated BNP, all well compatible with acute congestive heart failure exacerbation, she was started on IV Lasix and was admitted to telemetry floor for further evaluation, patient has a known history of ovarian cancer, she also had a history of lower extremity DVT about 6 months ago, she has been maintained on Xarelto, she states that she has not missed taking her medication. Patient describes shortness of breath with any activity, otherwise she denies any other complaints there is no chest pain no fever or chills no headache or dizziness no cough no nausea or vomiting no abdominal pain no diarrhea no burning was urination no frequency or urgency and no hematuria. On 09/27/2019 patient was seen and examined on the telemetry floor she is alert and oriented 3 in no apparent distress she reports improvement in her shortness of breath there is no chest pain there is no palpitation there is no fever or chills no headache or dizziness no cough no nausea or vomiting no abdominal pain no diarrhea no burning was urination no frequency or urgency and no hematuria on 09/28/2019 patient was seen and examined on the telemetry floor she is doing better her shortness of breath has improved, she is receiving oral Lasix 40 mg by mouth daily, she denies any other symptoms, there is no fever or chills no headache or dizziness no chest pain no palpitation no cough no nausea or vomiting no abdominal pain no diarrhea no burning was urination no frequency or urgency and no hematuria. Hemoglobin is still low at 7.8, iron level is low patient will receive a dose of IV iron today, she can be discharged home after IV iron, she was evaluated by cardiology and was cleared for discharge. Patient Condition at Discharge: Fair Plan - Discharge Summary New Discharge Prescriptions: New Furosemide [Lasix] 40 mg PO DAILY tab Continue amLODIPine [Norvasc] 5 mg PO DAILY@1700 Meclizine [Antivert] 25 mg PO BID@0900,1700 Losartan [Cozaar] 50 mg PO DAILY@1700 Venlafaxine HCl ER [Effexor XR] 75 mg PO DAILY Pantoprazole Sodium [Protonix] 40 mg PO DAILY@0800 Metoprolol Succinate [Toprol XL] 25 mg PO TID@0800,1300,1800 HYDROcodone/APAP 5-325MG [Logan 5-325] 1 tab PO Q4HR PRN PRN Reason: Pain clonazePAM 1 mg PO HS Rivaroxaban [Xarelto] 20 mg PO DAILY Calcium Carbonate/Vitamin D3 [Calcium 600-Vit D3 500 Softgel] 1 each PO DAILY Magnesium Asporotate 400 mg PO BID@0900,1800 Melatonin 3 mg PO HS Discharge Medication List Losartan [Cozaar] 50 mg PO DAILY@1700 12/31/17 [History] Meclizine [Antivert] 25 mg PO BID@0900,1700 12/31/17 [History] Metoprolol Succinate [Toprol XL] 25 mg PO TID@0800,1300,1800 12/31/17 [History] Pantoprazole Sodium [Protonix] 40 mg PO DAILY@0800 12/31/17 [History] Venlafaxine HCl ER [Effexor XR] 75 mg PO DAILY 12/31/17 [History] amLODIPine [Norvasc] 5 mg PO DAILY@1700 12/31/17 [History] HYDROcodone/APAP 5-325MG [Logan 5-325] 1 tab PO Q4HR PRN 03/01/18 [History] Calcium Carbonate/Vitamin D3 [Calcium 600-Vit D3 500 Softgel] 1 each PO DAILY 09/26/19 [History] Magnesium Asporotate 400 mg PO BID@0900,1800 09/26/19 [History] Melatonin 3 mg PO HS 09/26/19 [History] Rivaroxaban [Xarelto] 20 mg PO DAILY 09/26/19 [History] clonazePAM 1 mg PO HS 09/26/19 [History] Furosemide [Lasix] 40 mg PO DAILY tab 09/28/19 [Rx] Follow up Appointment(s)/Referral(s): Deja Juan MD [STAFF PHYSICIAN] - 10/06/19 4:15 pm ([facility] Location (in front of [facility]) October 25 appointment cancelled/resheduled) Heavenly Fitch MD [Primary Care Provider] - 10/05/19 1:45 pm Rony Sarabia MD [STAFF PHYSICIAN] - 10/17/19 10:45 am (No earlier appointment with Dr. Sarabia available per his office. If you decide you do not want to continue with the chemo on October 10, please call the infusion center. ) Patient Instructions/Handouts: Heart Failure (DC) Activity/Diet/Wound Care/Special Instructions: Activity as tolerated. Diet as tolerated, low sodium diet encouraged. Discharge Disposition: HOME SELF-CARE
== END 2019-09-28 16:36 | disposition home or self-care (01) | DRG 292 ==
LOC: EC 15:30 → 3SCARD 20:55 → OBSVTOIN 09-26 02:38 → 3SCARD 09-26 18:32
PROVIDERS: ADMIT Internal Medicine; ATTEND Internal Medicine
DX: I11.0 Hypertensive heart disease with heart failure (principal); C56.9 Malignant neoplasm of unspecified ovary; I50.33 Acute on chronic diastolic (congestive) heart failure; K21.9 Gastro-esophageal reflux disease without esophagitis; H81.09 Meniere's disease, unspecified ear; I27.20 Pulmonary hypertension, unspecified; F32.9 Major depressive disorder, single episode, unspecified; D64.9 Anemia, unspecified; Z20.828 Contact with and (suspected) exposure to other viral communicable diseases; Z98.890 Other specified postprocedural states; Z79.899 Other long term (current) drug therapy; Z79.82 Long term (current) use of aspirin; Z79.01 Long term (current) use of anticoagulants; Z88.5 Allergy status to narcotic agent; Z88.2 Allergy status to sulfonamides; Z91.041 Radiographic dye allergy status; I25.2 Old myocardial infarction; Z87.440 Personal history of urinary (tract) infections; Z90.710 Acquired absence of both cervix and uterus; Z86.718 Personal history of other venous thrombosis and embolism; Z82.3 Family history of stroke
CPT/HCPCS: 36415; 71046; 80053; 82607; 82728; 82746; 83540; 83550; 83605; 83735; 83880; 84443; 84484; 85025; 85045; 85610; 85730; 86304; 87635; 93005; 93306; 96374; 96376; 99285

== ENCOUNTER → 2020-03-19 | Outpatient (CLI) | payer MEDICARE, OTHER ==
--- NOTE | 2020-03-21 08:41 | MM ---
Reason for exam: screening (asymptomatic). Last mammogram was performed 1 year and 2 months ago. History: Patient is postmenopausal, has history of ovarian cancer at age 77, and has history of breast cancer at age 65. Mastectomy of the left breast, July 07, 2010. Malignant left mammotome panel of the left breast, June 25, 2010. Excisional biopsy of the left breast, August 26, 1999. Malignant stereotactic core biopsy of the left breast, August 08, 1999. Lumpectomy of the left breast, 1999. Radiation therapy of the left breast, 1999. Cyst aspiration of the left breast. Cyst aspiration of the right breast. Took estrogen for 20 years beginning at age 43. Taking antineoplastic for 1 year beginning at age 82. Physical Findings: A clinical breast exam by your physician is recommended on an annual basis and results should be correlated with mammographic findings. MG 3D Scr Obdulia Unilateral W/Cad CC and MLO view(s) were taken of the right breast. Prior study comparison: January 26, 2019, right breast MG 3d diag mammo w/cad RT. December 27, 2017, right breast MG 3d diag mammo w/cad RT. The breast tissue is heterogeneously dense. This may lower the sensitivity of mammography. Finding: There are stable typically benign diffuse/scattered, fine calcifications in the right breast. No significant changes in finding since January 26, 2019 and December 27, 2017. ASSESSMENT: Benign, BI-RAD 2 RECOMMENDATION: Routine screening mammogram of the right breast in 1 year.
== END | disposition home or self-care (01) ==
LOC: RADMAMWWP 12:50
PROVIDERS: ATTEND Internal Medicine Hematology & Oncology
DX: Z12.31 Encounter for screening mammogram for malignant neoplasm of breast (principal); Z90.12 Acquired absence of left breast and nipple
CPT/HCPCS: 77067

== ENCOUNTER 2020-04-17 13:48 | Inpatient (IN) | payer MEDICARE, OTHER ==
--- NOTE | 2020-04-17 14:11 | ED ---
General Adult HPI - General Chief complaint: Syncope Stated complaint: pt has fallen 6 times since 04/16/20 Time Seen by Provider: 04/17/20 13:56 Source: patient, family, RN notes reviewed Mode of arrival: ambulatory Limitations: no limitations - History of Present Illness Initial comments: Patient is a pleasant 84-year-old female presenting to the emergency department following several frequent falls. Onset of symptoms was 2 days ago. Patient did have an episode where she felt flushed and nauseated. Following that patient has been leaning towards the right side. Patient has fallen around 6 times, no serious injury. Patient keeps leaning towards the right. Patient does have a history of stage IV ovarian cancer, not currently on treatment s econdary to no further use of treatment. No headache. Patient does not feel confused. No isolated area of weakness. No history of similar symptoms previously. - Related Data Home Medications Medication Instructions Recorded Confirmed Losartan [Cozaar] 50 mg PO DAILY 12/31/17 04/17/20 Meclizine [Antivert] 25 mg PO BID 12/31/17 04/17/20 Metoprolol Succinate [Toprol XL] 25 mg PO TID 12/31/17 04/17/20 Pantoprazole Sodium [Protonix] 40 mg PO DAILY 12/31/17 04/17/20 Venlafaxine HCl ER [Effexor XR] 75 mg PO DAILY 12/31/17 04/17/20 amLODIPine [Norvasc] 5 mg PO DAILY 12/31/17 04/17/20 HYDROcodone/APAP 5-325MG [[place] 1 tab PO Q4H PRN 03/01/18 04/17/20 5-325] Calcium Carbonate/Vitamin D3 1 cap PO DAILY 09/26/19 04/17/20 [Calcium 600-Vit D3 500 Softgel] Magnesium Asporotate 400 mg PO BID 09/26/19 04/17/20 Melatonin 3 mg PO HS 09/26/19 04/17/20 clonazePAM 1 mg PO HS 09/26/19 04/17/20 Prochlorperazine [Compazine] 10 mg PO Q6H PRN 04/17/20 04/17/20 Rivaroxaban [Xarelto] 15 mg PO DAILY 04/17/20 04/17/20 Previous Rx's Medication Instructions Recorded Furosemide [Lasix] 40 mg PO DAILY tab 09/28/19 Allergies Allergy/AdvReac Type Severity Reaction Status Date / Time codeine Allergy Vomiting Verified 04/17/20 15:07 iodine Allergy Rash/Hives Verified 04/17/20 15:07 Sulfa (Sulfonamide Allergy Rash/Hives Verified 04/17/20 15:07 Antibiotics) Review of Systems ROS Statement: Those systems with pertinent positive or pertinent negative responses have been documented in the HPI. ROS Other: All systems not noted in ROS Statement are negative. Constitutional: Denies: fever Eyes: Denies: eye pain ENT: Denies: ear pain Respiratory: Denies: cough Cardiovascular: Denies: chest pain Endocrine: Denies: fatigue Gastrointestinal: Denies: abdominal pain Genitourinary: Denies: dysuria Musculoskeletal: Denies: back pain Skin: Denies: rash Neurological: Reports: as per HPI Past Medical History Past Medical History: Cancer, GERD/Reflux, Hypertension, Myocardial Infarction ([place]) Additional Past Medical History / Comment(s): MENIERE'S DISEASE. OVARIAN CANCER, Last Myocardial Infarction Date:: UNKNOWN History of Any Multi-Drug Resistant Organisms: None Reported Past Surgical History: Breast Surgery, Hysterectomy Additional Past Surgical History / Comment(s): LUMPECTOMY LT BREAST. PORT PLACED RT CHEST. MASECTOMY LT BREAST. OVARIAN CANCER SX. COLONOSCOPY Past Anesthesia/Blood Transfusion Reactions: Motion Sickness Past Psychological History: Depression Smoking Status: Never smoker Past Alcohol Use History: None Reported Past Drug Use History: None Reported - Past Family History Mother Family Medical History: CVA/TIA General Exam Limitations: no limitations General appearance: alert, in no apparent distress Head exam: Present: normocephalic Eye exam: Present: normal appearance, PERRL, EOMI ENT exam: Present: normal oropharynx Neck exam: Present: normal inspection. Absent: tenderness Respiratory exam: Present: normal lung sounds bilaterally Cardiovascular Exam: Present: regular rate, normal rhythm GI/Abdominal exam: Present: soft. Absent: tenderness Extremities exam: Present: normal inspection Neurological exam: Present: alert, CN II-XII intact. Absent: motor sensory deficit Expanded Neurological exam: Present: protecting the airway Speech: Present: fluid speech Cranial nerves: EOM's Intact: Normal, Facial Sensation: Normal Sensory exam: Upper Extremity Light Touch: Normal, Lower Extremity Light Touch: Normal Motor strength exam: RUE: 5, LUE: 5, RLE: 5, LLE: 5 Eye Response: (4) open spontaneously Motor Response: (6) obeys commands Verbal Response: (5) oriented Psychiatric exam: Present: normal affect, normal mood Skin exam: Present: normal color Course Vital Signs 04/17/20 13:50 Temperature 98.0 F Pulse Rate 63 Respiratory 16 Rate Blood Pressure 129/63 O2 Sat by Pulse 96 Oximetry EKG Findings - EKG Comments: EKG Findings:: Sinus bradycardia 59. Sinus arrhythmia. ND 142. QRS 88. QT 422. QTC 417. Left axis. LVH with repolarization changes. Medical Decision Making - Medical Decision Making Patient reevaluated. Patient and family updated on results and plan. Case was discussed in detail with Dr. Fitch, who will admit his patient. Daughter does add that there may have been some episodes of mild slurred speech - Lab Data Result diagrams: 04/17/20 14:17 04/17/20 14:17 Lab Results 04/17/20 04/17/20 04/17/20 Range/Units 14:17 14:17 14:17 WBC 6.0 (3.8-10.6) k/uL RBC 4.04 (3.80-5.40) m/uL Hgb 12.3 (11.4-16.0) gm/dL Hct 37.3 (34.0-46.0) % MCV 92.2 (80.0-100.0) fL MCH 30.3 (25.0-35.0) pg MCHC 32.9 (31.0-37.0) g/dL RDW 13.3 (11.5-15.5) % Plt Count 229 (150-450) k/uL MPV 6.9 Neutrophils % 62 % Lymphocytes % 24 % Monocytes % 7 % Eosinophils % 3 % Basophils % 1 % Neutrophils # 3.8 (1.3-7.7) k/uL Lymphocytes # 1.5 (1.0-4.8) k/uL Monocytes # 0.4 (0-1.0) k/uL Eosinophils # 0.2 (0-0.7) k/uL Basophils # 0.1 (0-0.2) k/uL PT 12.2 H (9.0-12.0) sec INR 1.2 H (<1.2) APTT 33.6 H (22.0-30.0) sec Sodium 134 L (137-145) mmol/L Potassium 4.7 (3.5-5.1) mmol/L Chloride 100 (98-107) mmol/L Carbon Dioxide 27 (22-30) mmol/L Anion Gap 7 mmol/L BUN 25 H (7-17) mg/dL Creatinine 1.30 H (0.52-1.04) mg/dL Est GFR (CKD-EPI)AfAm 43 (>60 ml/min/1.73 sqM) Est GFR (CKD-EPI)NonAf 37 (>60 ml/min/1.73 sqM) Glucose 98 (74-99) mg/dL Calcium 9.4 (8.4-10.2) mg/dL Total Bilirubin 0.6 (0.2-1.3) mg/dL AST 67 H (14-36) U/L ALT 60 H (4-34) U/L Alkaline Phosphatase 156 H (38-126) U/L Total Protein 7.9 (6.3-8.2) g/dL Albumin 4.2 (3.5-5.0) g/dL - Radiology Data Radiology results: report reviewed (Computed tomography scan of brain with and without contrast shows atrophy. Small vessel changes. Left frontal meningi justino.), image reviewed (X-ray shows no acute process) Disposition Clinical Impression: Ataxia, TIA (transient ischemic attack) Disposition: ADMITTED IP TO THIS HOSP Is patient prescribed a controlled substance at d/c from ED?: No Referrals: Heavenly Fitch MD [Primary Care Provider] - 1-2 days Decision Time: 17:08
[2020-04-17 14:29] LABS: Basophils # (A) 0.1 k/uL (0-0.2); Basophils % (A) 1 %; Eosinophils # (A) 0.2 k/uL (0-0.7); Eosinophils % (A) 3 %; HCT 37.3 % (34.0-46.0); HGB 12.3 gm/dL (11.4-16.0); Lymphocytes # (A) 1.5 k/uL (1.0-4.8); Lymphocytes % (A) 24 %; MCH 30.3 pg (25.0-35.0); MCHC 32.9 g/dL (31.0-37.0); MCV 92.2 fL (80.0-100.0); Mean Platelet Volume 6.9; Monocytes # (A) 0.4 k/uL (0-1.0); Monocytes % (A) 7 %; Neutrophils # (A) 3.8 k/uL (1.3-7.7); Neutrophils % (A) 62 %; Platelet Count 229 k/uL (150-450); RBC 4.04 m/uL (3.80-5.40); RDW 13.3 % (11.5-15.5)
[2020-04-17 14:37] LABS: INR 1.2 (<1.2); Partial Thromboplastin Time 33.6 sec (22.0-30.0); Prothrombin Time 12.2 sec (9.0-12.0)
--- NOTE | 2020-04-17 14:39 | XR ---
EXAMINATION TYPE: XR chest 1V portable DATE OF EXAM: 04/17/2020 HISTORY: Shortness of breath. COMPARISON: 09/27/2019 TECHNIQUE: Single view of the chest is submitted. FINDINGS: Demonstrated are scattered senescent parenchymal change. There is no evidence for focal infiltrate. The heart is stable. Stable right-sided Mediport catheter. Hilar and mediastinal structures are within normal limits. Degenerative changes are seen of the dorsal spine. IMPRESSION: 1. Chronic changes without evidence for acute pulmonary disease.
[2020-04-17 14:41] LABS: Potassium 4.7 mmol/L (3.5-5.1)
[2020-04-17 14:42] LABS: Albumin 4.2 g/dL (3.5-5.0); Calcium 9.4 mg/dL (8.4-10.2); Total Bilirubin 0.6 mg/dL (0.2-1.3); Total Protein 7.9 g/dL (6.3-8.2)
[2020-04-17] MEDS ORDERED: SODIUM CHLORIDE 0.9% 500 ML 500 ML IV STA (15:03)
[2020-04-17] MEDS ORDERED: methylPREDNISolone SOD SUCCI 125 MG/2 ML VIAL IV STA (15:04)
[2020-04-17] MEDS ORDERED: diphenhydrAMINE 50 MG/ML 1 ML VIAL IVP STA (15:05)
[2020-04-17] MEDS ORDERED: FAMOTIDINE 20 MG/2 ML VIAL IV STA (15:05)
[2020-04-17] MEDS: SODIUM CHLORIDE 0.9% 1,000 ML IV STA ×2 (15:09→17:46)
--- NOTE | 2020-04-17 16:08 | CT ---
EXAMINATION TYPE: CT brain wo/w con DATE OF EXAM: 04/17/2020 COMPARISON: None. HISTORY: weakness with multiple falls and injuries. History of ovarian cancer. CT DLP: 2182.4 mGycm Automated exposure control for dose reduction was used. CONTRAST: CT scan of the head is performed without and with IV Contrast, patient injected with 65 mL of Isovue 300. FINDINGS: Noncontrast images show no acute intracranial hemorrhage or midline shift. Diffuse ventricu lar and sulcal prominence. Low-attenuation in the deep and periventricular white matter. Scleral elma cification bilateral globes. The visualized sinuses are clear. Broad-based right frontoparietal calci fication possible osteoma on axial image 32 measures 2.1 x 0.7 cm . There is 7 mm enhancing left fron gaye lesion seen best coronal image 24 favoring small extra-axial meningioma. The calvarium is intact . IMPRESSION: Mild to moderate diffuse cerebral atrophy with more moderately advanced chronic small ves fco ischemic change. Small 7 mm inferior left frontal meningioma noted.
[2020-04-17] MEDS ORDERED: ASPIRIN 325 MG TAB PO STA (17:08)
[2020-04-18] MEDS ORDERED: HYDROcodone/APAP 5-325MG 1 EACH TAB PO PRN (00:15)
[2020-04-18] MEDS ORDERED: PROCHLORPERAZINE 10 MG TAB PO PRN (00:15)
[2020-04-18] MEDS: MELATONIN 3 MG TABLET PO SCH ×2 (00:27→20:59)
[2020-04-18] MEDS: clonazePAM 1 MG TAB PO SCH ×2 (00:27→20:59)
[2020-04-18] MEDS: METOPROLOL SUCCINATE (ER) 25 MG TAB.ER.24H PO SCH ×4 (00:27→20:59)
[2020-04-18] MEDS: amLODIPine 5 MG TAB PO SCH ×2 (00:28→17:48)
[2020-04-18 03:06] LABS: Cholesterol 208 mg/dL (<200); HDL Cholesterol 75 mg/dL (40-60); LDL Cholesterol,Calculated 112 mg/dL (0-99); Triglycerides 106 mg/dL (<150)
[2020-04-18] MEDS ORDERED: MAGNESIUM ASPARTATE PO SCH (09:00)
[2020-04-18] MEDS: LOSARTAN 50 MG TAB PO SCH (09:37)
[2020-04-18] MEDS: CALCIUM CARB-VIT D 500MG-200UN 1 EACH TAB PO SCH (09:37)
[2020-04-18] MEDS: FUROSEMIDE 40 MG TAB PO SCH (09:37)
[2020-04-18] MEDS: RIVAROXABAN 15 MG TAB PO SCH (09:37)
[2020-04-18] MEDS: VENLAFAXINE HCL ER 75 MG CAP PO SCH (09:37)
[2020-04-18] MEDS: MECLIZINE 25 MG TAB PO SCH ×2 (09:37→20:59)
[2020-04-18] MEDS: ASPIRIN 325 MG TAB PO SCH (09:37)
[2020-04-18] MEDS: PANTOPRAZOLE 40 MG TABLET PO SCH (09:37)
[2020-04-18] MEDS ORDERED: FAMOTIDINE 20 MG/2 ML VIAL IV STA (11:15)
[2020-04-18] MEDS ORDERED: methylPREDNISolone SOD SUCCI 125 MG/2 ML VIAL IV STA (11:15)
[2020-04-18] MEDS ORDERED: diphenhydrAMINE 50 MG/ML 1 ML VIAL IVP STA ×2 (11:15→15:52)
--- NOTE | 2020-04-18 13:03 | US ---
EXAMINATION TYPE: US venous doppler duplex LE BI DATE OF EXAM: 04/18/2020 12:40 PM COMPARISON: Prior ultrasound March 08, 2019 CLINICAL HISTORY: Hx DVT, new TIA symptoms. No redness or swelling. Hx left leg dvt. SIDE PERFORMED: Bilateral TECHNIQUE: The lower extremity deep venous system is examined utilizing real time linear array sonog lynda with graded compression, doppler sonography and color-flow sonography. VESSELS IMAGED: Common Femoral Vein Deep Femoral Vein Greater Saphenous Vein * Femoral Vein Popliteal Vein Small Saphenous Vein * Proximal Calf Veins (* superficial vessels) Right Leg: Negative for DVT. Posterior knee fluid collection = 4.1 x 3.2 x 1.8 cm Left Leg: Positive for DVT in proximal femoral vein to distal femoral vein with collateral visualize d. Posterior knee fluid collection = 5.6 x 3.7 x 1.9 cm Grayscale, color doppler, spectral doppler imaging performed of the deep veins of the bilateral lower extremities. There is normal flow, compressibility, vascular waveforms. IMPRESSION: No ultrasound evidence for acute DVT in either lower extremity. Small to moderate-sized popliteal cyst are redemonstrated on current study. Left slightly larger in size versus right on curr ent study but similar measurements to prior.
[2020-04-18 14:35] LABS: Basophils % (A) 0 %; Eosinophils % (A) 0 %; HCT 36.2 % (34.0-46.0); HGB 12.6 gm/dL (11.4-16.0); Lymphocytes # (A) 0.8 k/uL (1.0-4.8); Lymphocytes % (A) 13 %; MCH 31.5 pg (25.0-35.0); MCHC 34.8 g/dL (31.0-37.0); MCV 90.5 fL (80.0-100.0); Mean Platelet Volume 6.7; Monocytes # (A) 0.3 k/uL (0-1.0); Monocytes % (A) 4 %; Neutrophils # (A) 5.1 k/uL (1.3-7.7); Neutrophils % (A) 82 %; Platelet Count 250 k/uL (150-450); RBC 3.99 m/uL (3.80-5.40); RDW 13.4 % (11.5-15.5); WBC 6.3 k/uL (3.8-10.6)
--- NOTE | 2020-04-18 14:35 | P.CNNES ---
History of Present Illness Consult date: 04/18/20 Requesting physician: Nate Fernando Reason for Consult: Ataxia, evaluate for TIA History of Present Illness: Patient is a 84-year-old female, came to the hospital yesterday at around 2 PM for several frequent falls, that started 2 days ago. Patient did have an episode where she felt her face was flushed and she felt nauseated, wanted to go to the bathroom. She went to the bathroom, and she fell onto the right and then vomited. Patient had difficulty getting herself up. Following that, patient has been leaning toward the right side. Patient has fallen around 6 times, no serious injury. She did not vomit with subsequent falls. Patient keeps leaning towards the right. Patient does have history of stage IV ovarian cancer, not currently on treatment centimeter no further use of treatment. Denies headache. Denies any strokelike symptoms. Patient's vitals on arrival blood pressure 129/63, pulse rate 63, temperature 98.0. CT head showed mild to moderate diffuse cerebral atrophy with more moderately advanced chronic small vessel ischemic change. Small 7 mm inferior left frontal meningioma noted. Chest x-ray showed chronic changes without evidence for acute pulmonary disease. EKG shows sinus bradycardia with sinus arrhythmia. Left-ventricular hypertrophy with repolarization abnormality. Patient currently is on Xarelto 15 mg daily, apparently aspirin 325 mg daily has been started in the hospital. Patient states he has history of breast cancer for which she underwent lumpectomy followed by radiation. 20 years later the cancer came back in the same breast for which she underwent mastectomy. She then was diagnosed with ovarian cancer. Patient has stage IV ovarian cancer, Mnire's disease. Patient had a 2-D echo 09/27/2019 which revealed sinus rhythm, mild concentric LVH, EF is 55-60% left atrial mildly dilated mild AR moderate to severe TR, moderate to severe pulmonary hypertension. Patient denies any tobacco use, alcohol, no diabetes. Patient denies any numbness tingling focal weakness, slurred speech facial droop or loss of vision. Review of Systems As above in detail. Patient complains of some tremors of her left arm for last 5 years. She tends to fall to the right side. Complains of some headache. Denies numbness tingling. Denies any chest pain abdominal pain and nausea vomiting. She has Mnire's disease. All other review of systems unremarkable. Past Medical History Past Medical History: Cancer, GERD/Reflux, Hypertension, Myocardial Infarction ([place]) Additional Past Medical History / Comment(s): MENIERE'S DISEASE. OVARIAN CANCER, Last Myocardial Infarction Date:: UNKNOWN History of Any Multi-Drug Resistant Organisms: None Reported Past Surgical History: Breast Surgery, Hysterectomy Additional Past Surgical History / Comment(s): LUMPECTOMY LT BREAST. PORT P LACED RT CHEST. MASECTOMY LT BREAST. OVARIAN CANCER SX. COLONOSCOPY Past Anesthesia/Blood Transfusion Reactions: Motion Sickness Past Psychological History: Depression Smoking Status: Never smoker Past Alcohol Use History: None Reported Past Drug Use History: None Reported - Past Family History Mother Family Medical History: CVA/TIA Medications and Allergies Home Medications Medication Instructions Recorded Confirmed Type Losartan [Cozaar] 50 mg PO DAILY 12/31/17 04/17/20 History Meclizine [Antivert] 25 mg PO BID 12/31/17 04/17/20 History Metoprolol Succinate [Toprol XL] 25 mg PO TID 12/31/17 04/17/20 History Pantoprazole Sodium [Protonix] 40 mg PO DAILY 12/31/17 04/17/20 History Venlafaxine HCl ER [Effexor XR] 75 mg PO DAILY 12/31/17 04/17/20 History amLODIPine [Norvasc] 5 mg PO PC-SUPPER 12/31/17 04/17/20 History HYDROcodone/APAP 5-325MG [[place] 1 tab PO Q4H PRN 03/01/18 04/17/20 History 5-325] Calcium Carbonate/Vitamin D3 1 cap PO DAILY 09/26/19 04/17/20 History [Calcium 600-Vit D3 500 Softgel] Magnesium Asporotate 400 mg PO BID 09/26/19 04/17/20 History Melatonin 3 mg PO HS 09/26/19 04/17/20 History clonazePAM 1 mg PO HS 09/26/19 04/17/20 History Furosemide [Lasix] 40 mg PO DAILY tab 09/28/19 04/17/20 Rx Prochlorperazine [Compazine] 10 mg PO Q6H PRN 04/17/20 04/17/20 History Rivaroxaban [Xarelto] 15 mg PO DAILY 12/16/20 12/16/20 History Allergies Allergy/AdvReac Type Severity Reaction Status Date / Time codeine Allergy Vomiting Verified 04/17/20 15:07 iodine Allergy Rash/Hives Verified 04/17/20 15:07 Sulfa (Sulfonamide Allergy Rash/Hives Verified 04/17/20 15:07 Antibiotics) Physical Examination - Vital Signs Vital Signs: Vital Signs Temp Pulse Pulse Resp BP BP Pulse Ox 04/18/20 09:36 97.5 F L 66 16 133/63 95 04/18/20 04:00 97.9 F 61 16 146/69 96 04/18/20 02:00 17 04/18/20 00:00 76 17 169/67 04/17/20 22:09 98.1 F 74 16 169/76 96 04/17/20 21:49 98.1 F 74 16 169/76 96 04/17/20 21:25 97.8 F 74 17 145/92 97 04/17/20 20:48 97.9 F 78 17 144/75 97 04/17/20 20:00 97.9 F 79 18 137/81 97 04/17/20 18:20 76 16 148/74 99 04/17/20 13:50 98.0 F 63 16 129/63 96 Intake and Output 04/17/20 04/18/20 04/18/20 22:59 06:59 14:59 Intake Total 0 Balance 0 Intake: Oral 0 Other: Voiding Method Toilet # Voids 1 Weight 64.864 kg 65.4 kg On examination patient is an elderly female very pleasant in no acute distress. Patient is alert and awake oriented to time place and person. Speech and language functions are normal. Attention and concentration fund of knowledge appears adequate. Detailed testing deferred. On cranial examination pupils are round and reactive to light, visual crump are full to confrontation, extraocular muscles are intact with no nystagmus. Face is symmetric, tongue protrudes to the midline. Palatal elevation and sensation normal, hearing and shoulder shrug normal. Facial sensation is normal. On muscle strength testing there is no pronator drift and the strength is completely normal in arms and legs distally and proximally. Deep tendon reflexes are 1+ and plantars is questionable up on the right, down on left. Sensory to touch is equal with no neglect. Patient has some shakiness for [id number] testing on the left. No obvious ataxia. Tone and bulk of muscles normal. Patient does have some mild myoclonic jerks of outstretched hands. Patient walks with a walker, appears somewhat shaky, does tend to lean to the right side. There is no obvious bruit or murmur, peripheral pulses are present. Chest is clear abdomen soft nontender. Results - Laboratory Findings CBC and BMP: 04/17/20 14:17 04/17/20 14:17 Abnormal Lab Findings: Abnormal Labs 04/17/20 04/17/20 04/17/20 14:17 14:17 14:17 PT 12.2 H INR 1.2 H APTT 33.6 H Sodium 134 L BUN 25 H Creatinine 1.30 H AST 67 H ALT 60 H Alkaline Phosphatase 156 H Cholesterol 208 H LDL Cholesterol, Calc 112 H HDL Cholesterol 75 H Assessment and Plan Assessment: * Frequent falls (x6), all to the right side in the last 2 days, unclear etiology. Examination is relatively nonfocal. CT of the head shows some small vessel disease. Patient has history of B12 deficiency with B12 of 219 on 09/26/2019. Her gait imbalance could be related to B12 deficiency. CVA, less likely. * DVT left leg. * History of Mnire's disease. * Ovarian cancer * Previous history of breast cancer. Plan: * We will check B12, folate, methylmalonic acid. We will start B12 and folate replacement. * MRI brain could be considered but patient is very claustrophobic, would need significant sedation, which can produce delirium, therefore we will hold off on MRI for now. * Patient has DVT, undergoing CTA of the chest to rule out PE. * Patient is already on Xarelto 15 mg and aspirin 325 mg. * PT OT evaluate gait.
[2020-04-18 14:50] LABS: Albumin 4.5 g/dL (3.5-5.0); Calcium 9.7 mg/dL (8.4-10.2); Potassium 4.2 mmol/L (3.5-5.1); Total Bilirubin 0.5 mg/dL (0.2-1.3); Total Protein 8.3 g/dL (6.3-8.2)
--- NOTE | 2020-04-18 16:11 | P.CONS ---
History of Present Illness - Reason for Consult Consult date: 04/18/20 ov cancer Requesting physician: Nate Fernando - Chief Complaint falls, leaning right, slurred speech - History of Present Illness Mrs. Waters is a very pleasant female pt of Dr. Sarabia diagnosed with high grade serous adenocarcinoma in 2013. She has had surgery and been on multiple chemotherapies and targeted agents over the years due to multiple recurrences. 04/20 LLE DVT and started on Xarelto. October 2019 pt opted out of chemo, did use aromasin for a brief period of time but, comfort was goal, hospice was not ordered as pt was doing ok. She sees Dr. Sarabia every 3 mo, her last Ca 125 03/14 was 173, overall asymptomatic. Admitted for symptoms of TIA, pt has been on xarelto for Hx of DVT, most recently on 15mg. She is not c/o any additional symptoms at this time, she has no lower extremity numbness or tingling, incontinence. Review of Systems 14 point ROS is negative except as stated in HPI Past Medical History Past Medical History: Cancer, GERD/Reflux, Hypertension, Myocardial Infarction ([place]) Additional Past Medical History / Comment(s): MENIERE'S DISEASE. OVARIAN CANCER, Last Myocardial Infarction Date:: UNKNOWN History of Any Multi-Drug Resistant Organisms: None Reported Past Surgical History: Breast Surgery, Hysterectomy Additional Past Surgical History / Comment(s): LUMPECTOMY LT BREAST. PORT PLACED RT CHEST. MASECTOMY LT BREAST. OVARIAN CANCER SX. COLONOSCOPY Past Anesthesia/Blood Transfusion Reactions: Motion Sickness Past Psychological History: Depression Smoking Status: Never smoker Past Alcohol Use History: None Reported Past Drug Use History: None Reported - Past Family History Mother Family Medical History: CVA/TIA Medications and Allergies Home Medications Medication Instructions Recorded Confirmed Type Losartan [Cozaar] 50 mg PO DAILY 12/31/17 04/17/20 History Meclizine [Antivert] 25 mg PO BID 12/31/17 04/17/20 History Metoprolol Succinate [Toprol XL] 25 mg PO TID 12/31/17 04/17/20 History Pantoprazole Sodium [Protonix] 40 mg PO DAILY 12/31/17 04/17/20 History Venlafaxine HCl ER [Effexor XR] 75 mg PO DAILY 12/31/17 04/17/20 History amLODIPine [Norvasc] 5 mg PO PC-SUPPER 12/31/17 04/17/20 History HYDROcodone/APAP 5-325MG [[place] 1 tab PO Q4H PRN 03/01/18 04/17/20 History 5-325] Calcium Carbonate/Vitamin D3 1 cap PO DAILY 09/26/19 04/17/20 History [Calcium 600-Vit D3 500 Softgel] Magnesium Asporotate 400 mg PO BID 09/26/19 04/17/20 History Melatonin 3 mg PO HS 09/26/19 04/17/20 History clonazePAM 1 mg PO HS 09/26/19 04/17/20 History Furosemide [Lasix] 40 mg PO DAILY tab 09/28/19 04/17/20 Rx Prochlorperazine [Compazine] 10 mg PO Q6H PRN 04/17/20 04/17/20 History Rivaroxaban [Xarelto] 15 mg PO DAILY 04/17/20 04/17/20 History Allergies Allergy/AdvReac Type Severity Reaction Status Date / Time codeine Allergy Vomiting Verified 04/17/20 15:07 iodine Allergy Rash/Hives Verified 04/17/20 15:07 Sulfa (Sulfonamide Allergy Rash/Hives Verified 04/17/20 15:07 Antibiotics) Physical Exam Vitals: Vital Signs Temp Pulse Pulse Resp BP BP Pulse Ox 04/18/20 09:36 97.5 F L 66 16 133/63 95 04/18/20 08:00 16 04/18/20 04:00 97.9 F 61 16 146/69 96 04/18/20 02:00 17 04/18/20 00:00 76 17 169/67 04/17/20 22:09 98.1 F 74 16 169/76 96 04/17/20 21:49 98.1 F 74 16 169/76 96 04/17/20 21:25 97.8 F 74 17 145/92 97 04/17/20 20:48 97.9 F 78 17 144/75 97 04/17/20 20:00 97.9 F 79 18 137/81 97 04/17/20 18:20 76 16 148/74 99 04/17/20 13:50 98.0 F 63 16 129/63 96 Intake and Output 12/16/20 12/17/20 12/17/20 22:59 06:59 14:59 Intake Total 0 Balance 0 Intake: Oral 0 Other: Voiding Method Toilet Toilet # Voids 1 Weight 64.864 kg 65.4 kg - Constitutional General appearance: average body habitus, cooperative, no acute distress - EENT Eyes: anicteric sclerae, EOMI ENT: hearing grossly normal, normal oropharynx - Neck Neck: no lymphadenopathy - Respiratory Respiratory: bilateral: CTA - Cardiovascular Rhythm: regular Heart sounds: normal: S1, S2 Abnormal Heart Sounds: no systolic murmur, no diastolic murmur, no rub, no S3 Gallop, no S4 Gallop, no click, no other leg Peripheral Edema: bilateral: None - Gastrointestinal General gastrointestinal: no absent bowel sounds, no decreased bowel sounds, no distended, no hepatomegaly, no hyperactive bowel sounds, normal bowel sounds, no organomegaly, no rigid, no scaphoid, soft, no splenomegaly, no tenderness, no umbilical hernia, no ventral hernia - Integumentary Integumentary: pale - Neurologic slightly slurred speech noted - Psychiatric Psychiatric: A&O x's 3, appropriate affect, intact judgment & insight Results CBC & Chem 7: 04/18/20 14:04 04/18/20 14:04 Labs: Abnormal Lab Results - Last 24 Hours (Table) 04/17/20 04/17/20 04/17/20 Range/Units 14:17 14:17 14:17 PT 12.2 H (9.0-12.0) sec INR 1.2 H (<1.2) APTT 33.6 H (22.0-30.0) sec Sodium 134 L (137-145) mmol/L BUN 25 H (7-17) mg/dL Creatinine 1.30 H (0.52-1.04) mg/dL AST 67 H (14-36) U/L ALT 60 H (4-34) U/L Alkaline Phosphatase 156 H (38-126) U/L Cholesterol 208 H (<200) mg/dL LDL Cholesterol, Calc 112 H (0-99) mg/dL HDL Cholesterol 75 H (40-60) mg/dL CT Scan - head: report reviewed Assessment and Plan (1) TIA (transient ischemic attack) Current Visit: Yes Status: Acute Priority: High Code(s): G45.9 - TRANSIENT CEREBRAL ISCHEMIC ATTACK, UNSPECIFIED SNOMED Code(s): 986708337 (2) Ataxia Current Visit: Yes Status: Acute Priority: High Code(s): R27.0 - ATAXIA, UNSPECIFIED SNOMED Code(s): 43691771 (3) DVT (deep venous thrombosis) Narrative/Plan: Hx of, 04/20, was told lifetime anticoagulation (due to malignancy), dose adjusted to 15mg QD 03/13/20. Continue Current Visit: No Status: Chronic Priority: Medium Code(s): I82.409 - ACUTE EMBOLISM AND THOMBOS UNSP DEEP VN UNSP LOWER EXTREMITY SNOMED Code(s): 998558455 (4) Ovarian cancer Narrative/Plan: No current treatment. Discussed comfort measures back in December. Pt was stable at that time and doing ok so, she cont on f/u with Dr. Sarabia and has Ca125 Q 3 months Current Visit: No Status: Chronic Priority: Medium Code(s): C56.9 - MALIGNANT NEOPLASM OF UNSPECIFIED OVARY SNOMED Code(s): 070326458 Plan: Required PT/OT evaluation for gait dysfunction and falls. Pt is on anticoagulation and antiplatelet therapy so bleeding risk is high. Risk vs benefit was discussed with pt. She lives alone. Advised her of safety concerns. She verbalized understanding. attests: I have performed H&P and developed impression and plan of care, discussed with dictator. I agree with dictated note, documented as a scribe.
--- NOTE | 2020-04-18 16:43 | CT ---
CT CHEST FOR PULMONARY EMBOLISM. EXAMINATION TYPE: CT angio chest DATE OF EXAM: 04/18/2020 INDICATION: Shorntess of breath., History of DVT TIA symptoms CT DLP: 210.4 mGycm, Automated exposure control for dose reduction was used. CONTRAST: Patient injected with 57 mL of Isovue 370. COMPARISON: CT chest 03/02/2018 TECHNIQUE: CT of the chest is performed on a spiral scan at 2 mm thick sections. Study is performed with intravenous contrast timed for evaluation for pulmonary embolism. This will limit additional po rtions of the evaluation. 3-D MIP images reconstructed by the technologist are reviewed on the compu ter in the coronal and sagittal planes. FINDINGS: Portion of the thyroid visualized is normal. No persistent filling defects are evident to suggest an acute pulmonary embolism. No mediastinal or hilar adenopathy enlarged by CT criteria is evident. The ascending aorta diameter at the level of the main pulmonary artery is 3.2 cm. The main pulmonary artery diameter at the bifur cation is 2.8 cm. Minimal peripheral increased lung markings are present. This could be related to some minimal early a rthrosis. Limited CT section through the upper abdomen are unremarkable. IMPRESSIONS: 1. No acute pulmonary embolism. 2. Few changes suggestive for mild pulmonary fibrosis
[2020-04-19 00:44] VITALS: RESP 16
[2020-04-19 04:24] LABS: Folate, Serum 13.7 ng/mL
[2020-04-19] MEDS: MECLIZINE 25 MG TAB PO SCH (08:26)
[2020-04-19] MEDS: LOSARTAN 50 MG TAB PO SCH (08:27)
[2020-04-19] MEDS: CALCIUM CARB-VIT D 500MG-200UN 1 EACH TAB PO SCH (08:27)
[2020-04-19] MEDS: PANTOPRAZOLE 40 MG TABLET PO SCH (08:27)
[2020-04-19] MEDS: METOPROLOL SUCCINATE (ER) 25 MG TAB.ER.24H PO SCH (08:27)
[2020-04-19] MEDS: VENLAFAXINE HCL ER 75 MG CAP PO SCH (08:27)
[2020-04-19] MEDS: FUROSEMIDE 40 MG TAB PO SCH (08:27)
[2020-04-19] MEDS: RIVAROXABAN 15 MG TAB PO SCH (08:27)
[2020-04-19] MEDS: ASPIRIN 325 MG TAB PO SCH (08:27)
[2020-04-19] MEDS ORDERED: CYANOCOBALAMIN 1,000 MCG/ML 1 ML VIAL IM ONE (12:00)
--- NOTE | 2020-04-19 13:06 | P.HPIM ---
History of Present Illness H&P Date: 04/18/20 Alpa Waters, is an 84-year-old female who presented to [facility] emergency room with a chief complaint of multiple falls, patient stated that starting Wednesday she had an episode where she felt a "heat flush and nausea" subsequently she felt weak and she started leaning towards the right side while she was walking she had multiple falls she has a larger bruise on her right lower extremity she denies any headache she denies having any head trauma during her falls. Patient was evaluated in the emergency room, vital examination on presentation revealed a temperature of 98 pulse 63 respiration 16 blood pressure 129/63 pulse ox 96% on room air her white blood count was 6.0 hemoglobin 12.3 platelet count 229 PT 12.2 INR 1.2 PTT 33.6 sodium 134 potassium 4.7 chloride 100 BUN 25 creatinine 1.3 AST 67 ALT 60 alkaline phosphatase 156, computed tomography scan of the brain was done in the emergency room and revealed mild to moderate diffuse cerebral atrophy with more advanced chronic small vessel ischemic changes and small 7 mm inferior left frontal meningioma, chest x-ray wa s done in the emergency room and revealed chronic changes without evidence for acute pulmonary disease, EKG was done in the emergency room and revealed sinus bradycardia with sinus arrhythmia, left ventricular hypertrophy and poor R-wave progression, she was admitted to telemetry floor neurology consultation was requested. Patient has a known history of ovarian cancer, she has been followed by Dr. Sarabia, she stated that her last treatment was 4 months ago, patient also has a known history of hypertension, history of coronary artery disease with previous history of myocardial infarction, history of gastroesophageal reflux disease, history of Mnire's disease. Past Medical History Past Medical History: Cancer, GERD/Reflux, Hypertension, Myocardial Infarction ([place]) Additional Past Medical History / Comment(s): MENIERE'S DISEASE. OVARIAN CANCER, Last Myocardial Infarction Date:: UNKNOWN History of Any Multi-Drug Resistant Organisms: None Reported Past Surgical History: Breast Surgery, Hysterectomy Additional Past Surgical History / Comment(s): LUMPECTOMY LT BREAST. PORT PLACED RT CHEST. MASECTOMY LT BREAST. OVARIAN CANCER SX. COLONOSCOPY Past Anesthesia/Blood Transfusion Reactions: Motion Sickness Past Psychological History: Depression Smoking Status: Never smoker Past Alcohol Use History: None Reported Past Drug Use History: None Reported - Past Family History Mother Family Medical History: CVA/TIA Medications and Allergies Home Medications Medication Instructions Recorded Confirmed Type Losartan [Cozaar] 50 mg PO DAILY 12/31/17 04/17/20 History Meclizine [Antivert] 25 mg PO BID 12/31/17 04/17/20 History Metoprolol Succinate [Toprol XL] 25 mg PO TID 12/31/17 04/17/20 History Pantoprazole Sodium [Protonix] 40 mg PO DAILY 12/31/17 04/17/20 History Venlafaxine HCl ER [Effexor XR] 75 mg PO DAILY 12/31/17 04/17/20 History amLODIPine [Norvasc] 5 mg PO PC-SUPPER 12/31/17 04/17/20 History HYDROcodone/APAP 5-325MG [[place] 1 tab PO Q4H PRN 03/01/18 04/17/20 History 5-325] Calcium Carbonate/Vitamin D3 1 cap PO DAILY 09/26/19 04/17/20 History [Calcium 600-Vit D3 500 Softgel] Magnesium Asporotate 400 mg PO BID 09/26/19 04/17/20 History Melatonin 3 mg PO HS 09/26/19 04/17/20 History clonazePAM 1 mg PO HS 09/26/19 04/17/20 History Furosemide [Lasix] 40 mg PO DAILY tab 09/28/19 04/17/20 Rx Prochlorperazine [Compazine] 10 mg PO Q6H PRN 04/17/20 04/17/20 History Rivaroxaban [Xarelto] 15 mg PO DAILY 04/17/20 04/17/20 History Aspirin 325 mg PO DAILY tab 04/19/20 Rx Allergies Allergy/AdvReac Type Severity Reaction Status Date / Time codeine Allergy Vomiting Verified 04/17/20 15:07 iodine Allergy Rash/Hives Verified 04/17/20 15:07 Sulfa (Sulfonamide Allergy Rash/Hives Verified 04/17/20 15:07 Antibiotics) Physical Exam Vitals: Vital Signs Temp Pulse Pulse Resp BP BP Pulse Ox 04/18/20 04:00 97.9 F 61 16 146/69 96 04/18/20 02:00 17 04/18/20 00:00 76 17 169/67 04/17/20 22:09 98.1 F 74 16 169/76 96 04/17/20 21:49 98.1 F 74 16 169/76 96 04/17/20 21:25 97.8 F 74 17 145/92 97 04/17/20 20:48 97.9 F 78 17 144/75 97 04/17/20 20:00 97.9 F 79 18 137/81 97 04/17/20 18:20 76 16 148/74 99 04/17/20 13:50 98.0 F 63 16 129/63 96 Intake and Output 04/17/20 04/18/20 04/18/20 22:59 06:59 14:59 Other: Voiding Method Toilet # Voids 1 Weight 64.864 kg 65.4 kg In general patient is alert and oriented 3 in no apparent distress HEENT head normocephalic and atraumatic Neck is supple no JVD no goiter no lymphadenopathy Chest exam reveals fine crackles in both lung crump no wheezing Cardiac exam reveals regular heart sounds S1 and S2 no gallops no murmurs Abdomen is soft nontender no organomegaly with normal bowel sounds Extremity exam reveals minimal edema no cyanosis or clubbing Neurological examination reveals mental status patient is alert and oriented 3, speech is fluent, no changes in vision, no weakness or numbness in any of her extremities, tone is normal strands is 5 out of 5 in all major muscle groups symmetrical bilaterally reflexes are 2+ symmetrical plantars are downwards bilaterally, no abnormality seen on [id number] testing except for minor tremor gait was not tested for safety reasons Results CBC & Chem 7: 04/18/20 14:04 04/18/20 14:04 Labs: Abnormal Lab Results - Last 24 Hours (Table) 04/17/20 04/17/20 04/17/20 Range/Units 14:17 14:17 14:17 PT 12.2 H (9.0-12.0) sec INR 1.2 H (<1.2) APTT 33.6 H (22.0-30.0) sec Sodium 134 L (137-145) mmol/L BUN 25 H (7-17) mg/dL Creatinine 1.30 H (0.52-1.04) mg/dL AST 67 H (14-36) U/L ALT 60 H (4-34) U/L Alkaline Phosphatase 156 H (38-126) U/L Cholesterol 208 H (<200) mg/dL LDL Cholesterol, Calc 112 H (0-99) mg/dL HDL Cholesterol 75 H (40-60) mg/dL Thrombosis Risk Factor Assmnt - Choose All That Apply Any of the Below Risk Factors Present?: No Other Risk Factors: Yes Each Risk Factor Represents 3 Points: Age 75 years or older Thrombosis Risk Factor Assessment Total Risk Factor Score: 3 Thrombosis Risk Factor Assessment Level: Moderate Risk Assessment and Plan Plan: 1. Multiple falls was leaning to the right, cause is unclear possibility of CVA was entertained neurology consultation was requested, computed tomography scan of the brain did not reveal any acute abnormality MRI was discussed however patient is severely claustrophobic, and she did not want to undergo sedation and MRI at this point. 2. Underlying history of ovarian cancer 3. Recent history of lower extremity DVT on the left maintained on Xarelto At this time patient is admitted to telemetry floor neurology consultation and oncology consultation were requested will follow closely
--- NOTE | 2020-04-19 13:11 | P.DS ---
Providers Date of admission: 04/17/20 17:08 Expected date of discharge: 04/19/20 Attending physician: Heavenly Fitch Consults: 04/17/20 17:09 Consult Physician Urgent Consulting Provider: Rony Sarabia Consult Reason/Comments: Oncological care Do you want consulting provider notified?: Yes Consult Physician Urgent Consulting Provider: Vicki Galvan Consult Reason/Comments: Ataxia, evaluate for TIA Do you want consulting provider notified?: Yes Primary care physician: Heavenly [facility] Course: Diagnosis on discharge: 1. Multiple falls was leaning to the right, cause is unclear possibility of CVA was entertained neurology consultation was requested, computed tomography scan of the brain did not reveal any acute abnormality MRI was discussed however patient is severely claustrophobic, and she did not want to undergo sedation and MRI at this point. 2. Underlying history of ovarian cancer 3. Recent history of lower extremity DVT on the left maintained on [facility] course: Alpa Waters, is an 84-year-old female who presented to [facility] emergency room with a chief complaint of multiple falls, patient stated that starting Wednesday she had an episode where she felt a "heat flush and nausea" subsequently she felt weak and she started leaning towards the right side while she was walking she had multiple falls she has a larger bruise on her right lower extremity she denies any headache she denies having any head trauma during her falls. Patient was evaluated in the emergency room, vital examination on presentation revealed a temperature of 98 pulse 63 respiration 16 blood pressure 129/63 pulse ox 96% on room air her white blood count was 6.0 hemoglobin 12.3 platelet count 229 PT 12.2 INR 1.2 PTT 33.6 sodium 134 potassium 4.7 chloride 100 BUN 25 creatinine 1.3 AST 67 ALT 60 alkaline phosphatase 156, computed tomography scan of the brain was done in the emergency room and revealed mild to moderate diffuse cerebral atrophy with more advanced chronic small vessel ischemic changes and small 7 mm inferior left frontal meningioma, chest x-ray was done in the emergency room and revealed chronic changes without evidence for acute pulmonary disease, EKG was done in the emergency room and revealed sinus bradycardia with sinus arrhythmia, left ventricular hypertrophy and poor R-wave progression, she was admitted to telemetry floor neurology consultation was requested. Patient has a known history of ovarian cancer, she has been followed by Dr. Sarabia, she stated that her last treatment was 4 months ago, patient also has a known history of hypertension, history of coronary artery disease with previous history of myocardial infarction, history of gastroesophageal reflux disease, history of Mnire's disease. On 04/19/2020 patient was seen and examined on the telemetry floor she is alert and oriented 3 in no apparent distress she was evaluated by neurology and as patient was really not wanting to be sedated and having an MRI she was cleared by neurology for discharge patient was able to stand up and walk without difficulty today, she was requesting to be discharged home, lab results reviewed with patient, patient will go and live with her daughter where she will have 24- hour scale, she was offered visiting nurse and physical therapy at home however patient declined. Patient will be discharged home today she would be followed in our office within 1 week she was told to return to emergency room if having any new symptoms Plan - Discharge Summary Discharge Rx Participant: Yes New Discharge Prescriptions: New Aspirin 325 mg PO DAILY tab Continue amLODIPine [Norvasc] 5 mg PO PC-SUPPER Meclizine [Antivert] 25 mg PO BID Losartan [Cozaar] 50 mg PO DAILY Venlafaxine HCl ER [Effexor XR] 75 mg PO DAILY Pantoprazole Sodium [Protonix] 40 mg PO DAILY Metoprolol Succinate [Toprol XL] 25 mg PO TID HYDROcodone/APAP 5-325MG [[place] 5-325] 1 tab PO Q4H PRN PRN Reason: Pain clonazePAM 1 mg PO HS Calcium Carbonate/Vitamin D3 [Calcium 600-Vit D3 500 Softgel] 1 cap PO DAILY Magnesium Asporotate 400 mg PO BID Melatonin 3 mg PO HS Furosemide [Lasix] 40 mg PO DAILY tab Rivaroxaban [Xarelto] 15 mg PO DAILY Prochlorperazine [Compazine] 10 mg PO Q6H PRN PRN Reason: Nausea Discharge Medication List Losartan [Cozaar] 50 mg PO DAILY 12/31/17 [History] Meclizine [Antivert] 25 mg PO BID 12/31/17 [History] Metoprolol Succinate [Toprol XL] 25 mg PO TID 12/31/17 [History] Pantoprazole Sodium [Protonix] 40 mg PO DAILY 12/31/17 [History] Venlafaxine HCl ER [Effexor XR] 75 mg PO DAILY 12/31/17 [History] amLODIPine [Norvasc] 5 mg PO PC-SUPPER 12/31/17 [History] HYDROcodone/APAP 5-325MG [[place] 5-325] 1 tab PO Q4H PRN 03/01/18 [History] Calcium Carbonate/Vitamin D3 [Calcium 600-Vit D3 500 Softgel] 1 cap PO DAILY 09/26/19 [History] Magnesium Asporotate 400 mg PO BID 09/26/19 [History] Melatonin 3 mg PO HS 09/26/19 [History] clonazePAM 1 mg PO HS 09/26/19 [History] Furosemide [Lasix] 40 mg PO DAILY tab 09/28/19 [Rx] Prochlorperazine [Compazine] 10 mg PO Q6H PRN 04/17/20 [History] Rivaroxaban [Xarelto] 15 mg PO DAILY 04/17/20 [History] Aspirin 325 mg PO DAILY tab 04/19/20 [Rx] Follow up Appointment(s)/Referral(s): Heavenly Fitch MD [Primary Care Provider] - 1-2 days Rony Sarabia MD [STAFF PHYSICIAN] - 04/30/20 2:45 pm
[2020-04-19 15:23] VITALS: BP 140/65; PULSE 65; TEMP 97.3
--- NOTE | 2020-04-20 19:55 | P.PN ---
Subjective Progress Note Date: 04/19/20 Patient was seen for a follow-up. Patient states she is feeling better. Offers no new complaints. Still slightly off balance. Objective - Vital Signs Vital signs: Vital Signs Temp 97.7 F 04/19/20 08:00 Pulse 60 04/19/20 08:00 Resp 16 04/19/20 08:00 BP 134/63 04/19/20 08:00 Pulse Ox 99 04/19/20 08:00 Intake & Output 04/18/20 04/19/20 04/19/20 18:59 06:59 18:59 Intake Total 600 180 Output Total 4512 386 3659 Balance -1300 -800 -1070 Weight 64.8 kg Intake: Oral 600 180 Output: Urine 0026 322 [id number] Other: Voiding Method Toilet Toilet # Voids 2 2 # Bowel Movements 0 - Exam Unchanged. Mental status, speech and language functions are normal. - Labs CBC & Chem 7: 04/18/20 14:04 04/18/20 14:04 Labs: Abnormal Lab Results - Last 24 Hours (Table) 04/18/20 04/18/20 Range/Units 14:04 14:04 Lymphocytes # 0.8 L (1.0-4.8) k/uL Sodium 136 L (137-145) mmol/L BUN 28 H (7-17) mg/dL Creatinine 1.14 H (0.52-1.04) mg/dL Glucose 106 H (74-99) mg/dL AST 49 H (14-36) U/L ALT 47 H (4-34) U/L Alkaline Phosphatase 167 H (38-126) U/L Total Protein 8.3 H (6.3-8.2) g/dL Assessment and Plan Assessment: * Frequent falls (x6), all to the right side in the last 2 days, unclear etiology. Probably due to B12 deficiency. * B12 deficiency. Patient has history of B12 deficiency with B12 of 219 on 09/26/2019. * DVT left leg. * History of Mnire's disease. * Ovarian cancer * Previous history of breast cancer. Plan: * B12 358, folate 13.7, methylmalonic acid 0.42 (normal <0.40). Patient was given B12 injection. Suggest continue B12 replacement, sublingually or IM. * MRI brain could be considered but patient is very claustrophobic, would need significant sedation, which can produce delirium, therefore we will hold off on MRI for now. * Patient has DVT, undergoing CTA of the chest to rule out PE. * Patient is already on Xarelto 15 mg and aspirin 325 mg. * PT OT evaluate gait.
== END 2020-04-19 15:00 | disposition home or self-care (01) | DRG 641 ==
LOC: EC 13:48 → 3SCARD 17:08
PROVIDERS: ADMIT Internal Medicine; ATTEND Internal Medicine
DX: E53.8 Deficiency of other specified B group vitamins (principal); C56.9 Malignant neoplasm of unspecified ovary; F40.240 Claustrophobia; H81.09 Meniere's disease, unspecified ear; F32.9 Major depressive disorder, single episode, unspecified; I25.10 Atherosclerotic heart disease of native coronary artery without angina pectoris; I27.20 Pulmonary hypertension, unspecified; R29.6 Repeated falls; I73.9 Peripheral vascular disease, unspecified; I10 Essential (primary) hypertension; I07.1 Rheumatic tricuspid insufficiency; K21.9 Gastro-esophageal reflux disease without esophagitis; I25.2 Old myocardial infarction; Z79.01 Long term (current) use of anticoagulants; Z79.82 Long term (current) use of aspirin; Z79.899 Other long term (current) drug therapy; Z85.3 Personal history of malignant neoplasm of breast; Z85.43 Personal history of malignant neoplasm of ovary; Z86.718 Personal history of other venous thrombosis and embolism; Z86.73 Personal history of transient ischemic attack (TIA), and cerebral infarction without residual deficits; Z90.710 Acquired absence of both cervix and uterus; Z88.5 Allergy status to narcotic agent; Z88.2 Allergy status to sulfonamides; Z91.041 Radiographic dye allergy status; Z98.890 Other specified postprocedural states
CPT/HCPCS: 36415; 70470; 71045; 71275; 80053; 80061; 82607; 82746; 83921; 85025; 85610; 85730; 93005; 93970; 96361; 96374; 96375; 99285

== ENCOUNTER → 2020-05-02 | Outpatient (CLI) | payer MEDICARE, OTHER ==
--- NOTE | 2020-05-02 09:46 | US ---
EXAMINATION TYPE: US venous doppler duplex LE LT DATE OF EXAM: 05/02/2020 8:00 AM COMPARISON: NONE CLINICAL HISTORY: M79.662 Pain In L lower limb, R22.42 Swelling Left. Left leg pain per patient. Pat ient states having hx DVT. On Xeralto. SIDE PERFORMED: Left TECHNIQUE: The lower extremity deep venous system is examined utilizing real time linear array sonog lynda with graded compression, doppler sonography and color-flow sonography. VESSELS IMAGED: Common Femoral Vein Deep Femoral Vein Greater Saphenous Vein * Femoral Vein Popliteal Vein Small Saphenous Vein * Proximal Calf Veins- Not well visualized (* superficial vessels) Left Leg: Appears negative for DVT. Limited visualization due to small veins. Posterior knee fluid collection - 5.4 x 4.0 x 2.5 cm IMPRESSION: 1. Left lower extremity ultrasound negative for deep venous thrombosis. 2. Left popliteal cyst
== END | disposition home or self-care (01) ==
LOC: RADUSWWP 07:37
PROVIDERS: ATTEND Internal Medicine Hematology & Oncology
DX: M71.22 Synovial cyst of popliteal space [Baker], left knee (principal); Z88.5 Allergy status to narcotic agent; Z88.3 Allergy status to other anti-infective agents; Z88.2 Allergy status to sulfonamides